=== PATIENT | female | born 1970 | race Caucasian/White ===

== ENCOUNTER → 2024-02-21 08:08 | Day surgery (SDC) | payer OTHER, SELFPAY | LOC: GI 08:08 | PROVIDERS: ATTENDING PHYSICIAN Surgery | DX: Z53.9 Procedure and treatment not carried out, unspecified reason (principal); Z12.11 Encounter for screening for malignant neoplasm of colon | CPT/HCPCS: G0121; G0378 ==

== ENCOUNTER 2024-03-04 12:21 | Inpatient (IN) | payer OTHER, SELFPAY ==
[2024-03-04] VITALS (34 sets, daily range): BP systolic 129–188; BP diastolic 79–160; PULSE 1–109; BMI 21.6; BMI 21.9
[2024-03-04 11:11] LABS: % Basophils 0.7 % (0-2); % Immature Granulocytes 0.3 % (0-0.5); % Lymphocytes 8.9 % (20.5-51.1); % Monocytes 3.4 % (1.7-9.3); % Neutrophils 86.7 % (42.2-75.2); Absolute Lymphocytes 0.3 10^3/uL (1.2-3.4); Absolute Monocytes 0.1 10^3/uL (0.1-0.6); Absolute Neutrophils 2.5 10^3/uL (1.4-6.5); Hematocrit 32.7 % (37.0-47.0); Hemoglobin 10.5 g/dL (12.0-16.0); Mean Corp Hgb Conc. 32.1 g/dL (33.0-37.0); Mean Corpuscular Hgb 30.8 pg (27.0-31.0); Mean Corpuscular Volume 95.9 fL (81.0-99.0); Mean Platelet Volume 9.2 fL (7.4-10.4); Nucleated Red Blood Cells % 0 %; Platelet Count 200 10^3/uL (130-400); Red Blood Cell Count 3.41 10^6/uL (4.20-5.40); Red Cell Dist. Width 17.4 % (11.5-14.5); White Blood Cell Count 2.9 10^3/uL (4.8-10.8)
--- NOTE | 2024-03-04 11:13 | ED.GENMED ---
History of Present Illness
<Lilian Quiros PA-C - Last Filed: 03/04/24 13:48>
General
Chief Complaint: Breathing Problem
Source: patient
Exam Limitations: none
Time Seen by Provider: 03/04/24 11:04
Travel History
Have you had any contact with someone who has COVID-19?: No
Do you have any symptoms of coronavirus? Fever > 100 degrees, chills, cough, shortness of breath, sore throat, loss of taste or smell, muscle aches, or headache?: Yes
Symptoms:: fever cough
History of Present Illness
History of Present Illness:
53-year-old female coming from home, history of end-stage renal disease on hemodialysis Monday did not get dialyzed today but last got dialyzed 3 days ago presents with dyspnea and a cough with hemoptysis this morning. Patient
apparently was feeling a little fatigued over the weekend over the past 2 days but abruptly got worse this morning with tachypnea and when she coughs she brought up a little bit of blood in her sputum. She was unaware she had a fever. She is
significantly hypoxic and tachypneic. She believes her weight is about her baseline. She has had chronic right leg edema compared to the left side
Past History
<Lilian Quiros PA-C - Last Filed: 03/04/24 13:48>
Past History
ED Past Medical History: Other (esrd on HD)
Social History
Tobacco: Smoker
Alcohol: None
Review of Systems
<ROBBY Johnson Last Filed: 03/04/24 13:48>
Review of Systems
Allergies reviewed?: Yes
All Other Systems: Not applicable
Phy Exam
<Lilian Quiros PA-C - Last Filed: 03/04/24 13:48>
Physical Exam
Physical Exam:
GENERAL: Alert , restless, air hunger, tachypneic, poor color
EYE: pupils equal and reactive
NECK: Supple
ENT: o/p clr DRY MOUTH
CARDIAC: regular, tachycardia
+ mod b/l edema R>L
LUNGS: crackles b/l, tachypneic, cough, some mild wheezing
ABDOMEN: Soft, without focal tenderness, no r/g, no cvat, normal bowel sounds
NEUROLOGICAL: Alert and oriented, no focal neuro deficits
SKIN: Warm and dry, skin intact. pale
MUSCULOSKELETAL: moderate edema, well perfused R>L. neg nahid's sign
PSYCH: Normal and appropriate interaction.
Scores
<Lilian Quiros PA-C - Last Filed: 03/04/24 13:48>
Heart Failure Risk
Heart Failure Risk Score: Not Applicable
Course
<Lilian Quiros PA-C - Last Filed: 03/04/24 13:48>
Orders/Labs/Results
Orders:
Orders
03/04/24 10:49
Electrocardiogram (*1) Urgent
Reason for Study: Other
Other Reason for Exam: Possible Sepsis
03/04/24 10:50
EKG- Treatment ONCE
03/04/24 10:52
COVID-19 Antigen Urgent
Source: Nasal Swab
Complete Blood Count/With Diff Urgent
Comprehensive Metabolic Panel Urgent
PTT Urgent
Comment: ADD ON
Prothrombin Time Urgent
Blood Culture Q30M
KIRIT Source: Blood/Venous
Specimen Description:
Comment: FROM 2 SEPARATE SITES
Influenza A+B Rapid Molecular Urgent
KIRIT Source: Nasal Swab
Specimen Description:
03/04/24 10:53
Lactic Acid Q4H
Comment: ON ICE, CANCEL 2ND ORDER IF FIRST LACTIC ACID LEVEL <2
03/04/24 10:59
BNP [NT-proBNP] Urgent
Blood Culture Q30M
KIRIT Source: Blood/Venous
Specimen Description:
Comment: FROM 2 SEPARATE SITES
03/04/24 11:09
Chest X-ray Portable [CR Chest Portable - 1 View] Stat
Comment:
Reason For Exam: hemotpysis, sob
Reason Study Needs to be Portable: Patient Unstable
03/04/24 11:16
Acetaminophen [Tylenol] 650 mg PO NOW STA
03/04/24 11:20
Piperacillin/Tazo 3.375 Gram [Zosyn] 3.375 gram in 50 ml IV NOW
Vancomycin 1 Gram/200 ml [Vancocin] 1 gram in 200 ml IV NOW
03/04/24 11:23
Cefepime HCl [Maxipime] 1,000 mg IV NOW STA
03/04/24 11:26
Bipap [RESP] Urgent
Patient to use own unit?: No
Inspiratory Pressure (cm H2O): 10
Expiratory Pressure (cm H2O): 5
03/04/24 11:31
Venous Doppler Lwr Ext Bilat [US Periph Venous LOWER Ext Colton] Urgent
Comment:
Reason For Exam: needs to be portable, pt unstable
03/04/24 11:59
Admit/Transfer Patient As Directed
Co-Sign Provider:
Level of Care: Inpatient admission
Assign to:: ICU
Physician / Group: hosp
Diagnosis: Hypoxic respiratory failure/community-acquired pneumonia
Reason for Hospitalization: Hypoxic respiratory failure
Expected length of stay greater than two midnights?: Yes
ELOS- Estimated Length of Stay in days: 4
I certify the patient meets the requirements for IP care: Yes
03/04/24 12:04
Code Status As Directed
Resuscitation Status: Full Code
03/04/24 12:18
Furosemide [Lasix] 40 mg IV NOW STA
03/04/24 12:27
ABG [Arterial Blood Gas] Urgent
%Oxygen/Room Air: 80
03/04/24 14:00
VANCOMYCIN Pharmacy to Dose [VANCOCIN Pharmacy to Dose] 1 each Pharmacy To Prepare [Call Pharmacy To Prepare] 0 ml IV PER PROTOCOL
03/05/24 18:00
Cefepime HCl [Maxipime] 1,000 mg IV QPM
Abnormal Lab Results
03/04/24
10:52
WBC 2.9 L 10^3/uL
(4.8-10.8)
RBC 3.41 L 10^6/uL
(4.20-5.40)
Hgb 10.5 L g/dL
(12.0-16.0)
Hct 32.7 L %
(37.0-47.0)
MCHC 32.1 L g/dL
(33.0-37.0)
RDW 17.4 H %
(11.5-14.5)
Absolute Lymphs (auto) 0.3 L 10^3/uL
(1.2-3.4)
Neutrophils % 86.7 H %
(42.2-75.2)
Lymphocytes % 8.9 L %
(20.5-51.1)
PT 16.8 H Sec
(11.4-14.6)
Sodium 132 L mmol/L
(135-145)
Chloride 96 L mmol/L
(98-107)
BUN 65 H mg/dl
(7-17)
Creatinine 6.9 H* mg/dL
(0.6-1.0)
Glucose 100 H mg/dl
(70-99)
Alkaline Phosphatase 213 H U/L
(38-126)
03/04/24 10:52
03/04/24 10:52
Vital Signs
Initial and Last Documented VS:
Initial Vital Signs
Temp Pulse Resp BP Pulse Ox
103 F H 115 35 176/112 88
03/04/24 10:46 03/04/24 10:46 03/04/24 10:46 03/04/24 10:46 03/04/24 10:46
Last Documented Vital Signs
Temp Pulse Resp BP Pulse Ox
102.7 F H 113 34 138/92 98
03/04/24 13:35 03/04/24 12:30 03/04/24 12:30 03/04/24 12:24 03/04/24 12:37
<Homer White, DO - Last Filed: 03/04/24 13:17>
Orders/Labs/Results
Orders:
Orders
03/04/24 10:49
Electrocardiogram (*1) Urgent
Reason for Study: Other
Other Reason for Exam: Possible Sepsis
03/04/24 10:50
EKG- Treatment ONCE
03/04/24 10:52
COVID-19 Antigen Urgent
Source: Nasal Swab
Complete Blood Count/With Diff Urgent
Comprehensive Metabolic Panel Urgent
PTT Urgent
Comment: ADD ON
Prothrombin Time Urgent
Blood Culture Q30M
KIRIT Source: Blood/Venous
Specimen Description:
Comment: FROM 2 SEPARATE SITES
Influenza A+B Rapid Molecular Urgent
KIRIT Source: Nasal Swab
Specimen Description:
03/04/24 10:53
Lactic Acid Q4H
Comment: ON ICE, CANCEL 2ND ORDER IF FIRST LACTIC ACID LEVEL <2
03/04/24 10:59
BNP [NT-proBNP] Urgent
Blood Culture Q30M
KRIIT Source: Blood/Venous
Specimen Description:
Comment: FROM 2 SEPARATE SITES
03/04/24 11:09
Chest X-ray Portable [CR Chest Portable - 1 View] Stat
Comment:
Reason For Exam: hemotpysis, sob
Reason Study Needs to be Portable: Patient Unstable
03/04/24 11:16
Acetaminophen [Tylenol] 650 mg PO NOW STA
03/04/24 11:20
Piperacillin/Tazo 3.375 Gram [Zosyn] 3.375 gram in 50 ml IV NOW
Vancomycin 1 Gram/200 ml [Vancocin] 1 gram in 200 ml IV NOW
03/04/24 11:23
Cefepime HCl [Maxipime] 1,000 mg IV NOW STA
03/04/24 11:26
Bipap [RESP] Urgent
Patient to use own unit?: No
Inspiratory Pressure (cm H2O): 10
Expiratory Pressure (cm H2O): 5
03/04/24 11:31
Venous Doppler Lwr Ext Bilat [US Periph Venous LOWER Ext Colton] Urgent
Comment:
Reason For Exam: needs to be portable, pt unstable
03/04/24 11:59
Admit/Transfer Patient As Directed
Co-Sign Provider:
Level of Care: Inpatient admission
Assign to:: ICU
Physician / Group: hosp
Diagnosis: Hypoxic respiratory failure/community-acquired pneumonia
Reason for Hospitalization: Hypoxic respiratory failure
Expected length of stay greater than two midnights?: Yes
ELOS- Estimated Length of Stay in days: 4
I certify the patient meets the requirements for IP care: Yes
03/04/24 12:04
Code Status As Directed
Resuscitation Status: Full Code
03/04/24 12:18
Furosemide [Lasix] 40 mg IV NOW STA
03/04/24 12:27
ABG [Arterial Blood Gas] Urgent
%Oxygen/Room Air: 80
03/04/24 14:00
VANCOMYCIN Pharmacy to Dose [VANCOCIN Pharmacy to Dose] 1 each Pharmacy To Prepare [Call Pharmacy To Prepare] 0 ml IV PER PROTOCOL
03/05/24 18:00
Cefepime HCl [Maxipime] 1,000 mg IV QPM
Abnormal Lab Results
03/04/24
10:52
WBC 2.9 L 10^3/uL
(4.8-10.8)
RBC 3.41 L 10^6/uL
(4.20-5.40)
Hgb 10.5 L g/dL
(12.0-16.0)
Hct 32.7 L %
(37.0-47.0)
MCHC 32.1 L g/dL
(33.0-37.0)
RDW 17.4 H %
(11.5-14.5)
Absolute Lymphs (auto) 0.3 L 10^3/uL
(1.2-3.4)
Neutrophils % 86.7 H %
(42.2-75.2)
Lymphocytes % 8.9 L %
(20.5-51.1)
PT 16.8 H Sec
(11.4-14.6)
Sodium 132 L mmol/L
(135-145)
Chloride 96 L mmol/L
(98-107)
BUN 65 H mg/dl
(7-17)
Creatinine 6.9 H* mg/dL
(0.6-1.0)
Glucose 100 H mg/dl
(70-99)
Alkaline Phosphatase 213 H U/L
(38-126)
03/04/24 10:52
03/04/24 10:52
Vital Signs
Initial and Last Documented VS:
Initial Vital Signs
Temp Pulse Resp BP Pulse Ox
103 F H 115 35 176/112 88
03/04/24 10:46 03/04/24 10:46 03/04/24 10:46 03/04/24 10:46 03/04/24 10:46
Last Documented Vital Signs
Temp Pulse Resp BP Pulse Ox
102.7 F H 113 34 138/92 98
03/04/24 13:35 03/04/24 12:30 03/04/24 12:30 03/04/24 12:24 03/04/24 12:37
<Lilian Quiros PA-C - Last Filed: 03/04/24 13:48>
MDM/Problems Addressed
Differential Diagnosis Includes:
sepsis, pneumonia,, covid, copd, ptx, PE, CHF
MDM/Problems Addressed:
53 y/o ESRD on HD M/W/F last dialyzed monday; fatigue yesterday, today SOB, fever to 103 and small amount of hemoptysis; hypoxic on 6L so now on BIPAP 08/24, cxr looks like moderate sized RLL pna and some intersitial edema; patient's symptoms
improved on BiPAP
And was diagnosed with hospitalist
03/04/2024 1215, called to the room by RN, patient acutely restless and tolerating provide our before she became irritable, restless with air hunger, wheezy. We remove the BiPAP and put her on high flow, ordered ABG, IV Lasix, DuoNebs, steroids and
will consider intubation as needed
Hospitalist made aware
<Homer White DO - Last Filed: 03/04/24 13:17>
*Critical Care Note
Total Time (30-74mins, 75-104mins- exclusive of procedures): 45min
comment:
The patient presents with shortness of breath. I evaluated the patient at bedside. The symptoms are likely multifactorial. The patient was on BiPAP but started did not tolerate it. She seemed to have increasing dyspnea therefore ABG was obtained
and considered intubation. ABG however is relatively reassuring.
ED Attending Note
<Lilian Quiros PA-C - Last Filed: 03/04/24 13:48>
-
Portions of this chart may have been created with voice recognition software.� Occasional wrong word or��sound alike� substitutions may have occurred due to the inherent limitations of voice recognition software.
<Homer White, DO - Last Filed: 03/04/24 13:17>
ED Attending Note
Patient seen and examined by attending physician: Yes
I performed the substantive portion of visit, reviewed & personally made and approve the management plan that is documented in note by myself or ALLI.: Yes
I performed a history and physical exam of patient and discussed management with resident, I reviewed resident's note and agree with documented findings and plan of care.: Yes
ED Attending Note:
See critical care note
Discharge Plan
Departure
Patient Disposition: Admit
Date of Disposition: 03/04/24
Time of Disposition: 11:29
Admit to: IMU
Presentation/result/management discussed w/ accepting MD/DO: Hospitalist
Condition: Fair
Covid-19: Negative COVID-19
Discharge Problem:
Pneumonia, Sepsis, Hypoxia, CHF (congestive heart failure)
Interventions
Interventions:
*Risk Screen - Suicide Last Done: 03/04/24 10:46
*General Assessment Last Done: 03/04/24 10:46
*Neglect/Abuse Screening Last Done: 03/04/24 10:46
ED- Fall Risk Assessment Last Done: 03/04/24 11:23
*ED COVID-19 Vaccine History Last Done: 03/04/24 10:46
ED- Cardiac Assessment Last Done: 03/04/24 11:23
ED- Pulmonary Assessment Last Done: 03/04/24 11:23
[2024-03-04 11:21] LABS: INR 1.39; PT 16.8 Sec (11.4-14.6)
[2024-03-04] MEDS: TYLENOL 650 MG PO ×3 (11:21→20:34)
[2024-03-04 11:22] LABS: COVID-19 Antigen Negative (Negative)
[2024-03-04 11:31] LABS: Lactic Acid 1.3 mmol/L (0.7-2.0)
[2024-03-04] MEDS: MAXIPIME 1000 MG IV ×2 (11:31→20:35)
[2024-03-04] MEDS: VANCOCIN 200 IV (11:34)
[2024-03-04 11:35] LABS: ALT (SGPT) 16 U/L (0-35); AST (SGOT) 26 U/L (14-36); Alkaline Phosphatase 213 U/L (38-126); Blood Urea Nitrogen 65 mg/dl (7-17); Calcium 9.4 mg/dl (8.4-10.2); Carbon Dioxide 24 mmol/L (22-30); Chloride 96 mmol/L (98-107); Estimated Creatinine Clearance 8 ml/min; Glucose 100 mg/dl (70-99); Potassium 4.5 mmol/L (3.5-5.1); Sodium 132 mmol/L (135-145); Total Bilirubin 1.2 mg/dl (0.2-1.3); Total Protein 7.5 g/dl (6.3-8.2); eGFR 6.55
[2024-03-04 11:46] LABS: NT-proBNP > 27000 pg/ml
--- NOTE | 2024-03-04 12:21 | HPS.HSE ---
Family Physician
-
Family Physician: Meena Larkin
Chief Complaint
-
Increasing fatigue shortness of breath and blood in sputum in the last 24 hours
History of Present Illness
53-year-old female on long-term dialysis since August with an AV fistula in her left brachialis who over the weekend developed increasing fatigue and lethargy but especially noted this morning and also had nausea and vomiting increasing shortness
of breath and she was too ill today to leave her scheduled dialysis that she gets Monday she has been diagnosed with end-stage renal disease since August of this past year but had described increasing fatigue over the weekend has
not felt right ever since she started dialysis. She also related a little bit of blood in her sputum this morning. She is not aware of a febrile course but presented with a fever of 103 here. She remains significantly hypoxic and is presently on
a BiPAP mask with continued tachypnea. BP remains relatively stable at 150s over 90 and heart rate is 10 5-1 10 she does relate chronic lower extremity edema with the right leg being out of proportion to the left as far as edema is concerned. She
received an empiric course of vancomycin and cefepime here in the emergency room/rest of his history is rather sketchy even from patient's mother at bedside who did supply a full list of her medications and the patient apparently has schizophrenia
is on Seroquel also restless legs and is treated for hypertensive urgency in the past.
Her most recent echocardiogram was in 2021 at that time an EF of 55 to 60% was noted with a normal RV and function trace mitral regurg and tricuspid regurg was noted no significant change in 2018.
-She is able to states she was born with 1 kidney but could not relate how she entered into end-stage renal disease in the necessity for hemodialysis. She is not diabetic. She does not relate a history of breast cancer. And she does have have
hyperlipidemia with prior surgeries including lumbar surgery
Medical History
Past Medical History
Past Medical History: Reports Cancer (Breast cancer), HTN, Hypercholesterolemia and Renal Failure
Past Surgical History: Reports Gynocological and Orthopedic
Additional Past Surgical History:
Prior lumbar surgery/AV fistula left arm
Social History
Tobacco: Non-smoker
Drug: None
Personal: Single
Living: Alone
Family History
Family History: Not pertinent
Allergies / Home Medications
Allergies reflects when Allergies were last updated in [facility].
Home Medications with original date entered in [facility]
Allergy/Medication List:
Allergies
Allergy/AdvReac Type Severity Reaction Status Date / Time
No Known Allergies Allergy Unverified 03/04/24 10:48
Home Medications
amlodipine 10 mg tablet (Norvasc) 10 mg PO HS Blood Pressure 12/22/08
carvedilol 25 mg tablet (Coreg) 25 mg PO BID Blood Pressure 03/04/24
cinacalcet 30 mg tablet 60 mg PO QPM Kidney Disease 03/04/24
furosemide 80 mg tablet (Lasix) 80 mg PO DAILY Fluid Retention/Swelling 03/04/24
gabapentin 100 mg capsule 100 mg PO TID pain 03/04/24
hydralazine 25 mg tablet 50 mg PO TID Blood Pressure 03/04/24
pramipexole 0.125 mg tablet 0.125 mg PO TID Neurological Condition 03/04/24
quetiapine 400 mg tablet (Seroquel) 400 mg PO HS Mental Health/Anxiety 03/04/24
ropinirole 0.5 mg tablet 0.5 mg PO BID Neurological Condition 03/04/24
rosuvastatin 10 mg tablet (Crestor) 10 mg PO DAILY High Cholesterol 03/04/24
sertraline 100 mg tablet 100 mg PO HS depression 03/04/24
sevelamer carbonate 800 mg tablet (Renvela) 800 mg PO AC Kidney Disease 03/04/24
sodium zirconium cyclosilicate 10 gram oral powder packet (Lokelma) 10 g PO MOWEFR high potassium levels 03/04/24
Review of Systems
-
History Source: Patient, Family and Ambulance Crew
Constitutional: Reports Fatigue and Sleep Disturbance
Respiratory: Reports Cough and Hemoptysis
Cardiac: Reports No Symptoms
: Reports No Symptoms
Physical Exam
Vital Signs
Vital Signs
Temp Pulse Resp BP Pulse Ox
103 F H 110 37 176/112 93
03/04/24 10:46 03/04/24 11:45 03/04/24 11:45 03/04/24 10:46 03/04/24 11:45
Physical Exam
HEENT: NormoCephalic
Respiratory: Accessory Resp Muscle Use and Decreased Breath Sounds
Cardiac: S1/S2 and Regular Rhythm
GI: Soft and Non Tender
Skin: Warm
Neuro: Awake, Alert and Oriented
Psych: Anxious
Laboratory Results
-
03/04/24 10:52
03/04/24 10:52
Laboratory Results
PT 16.8 Sec (11.4-14.6) H 03/04/24 10:52
INR 1.39 03/04/24 10:52
Lactic Acid Cancelled 03/04/24 15:00
Total Bilirubin 1.2 mg/dl (0.2-1.3) 03/04/24 10:52
AST 26 U/L (14-36) 03/04/24 10:52
ALT 16 U/L (0-35) 03/04/24 10:52
Alkaline Phosphatase 213 U/L (38-126) H 03/04/24 10:52
Data Reviewed
-
Critical Care Time (in minutes): 67
Diagnostic Radiology: Report Reviewed by me and Discussed with Physician
Medical Tests (Nuc Med, Echo, EKG etc): Report Reviewed by me
Lab Data: Labs Reviewed by me
Impression/Plan
-
IMPRESSION:
53-year-old female on long-term dialysis since August with an AV fistula in her left brachialis who over the weekend developed increasing fatigue and lethargy but especially noted this morning and also had nausea and vomiting increasing shortness
of breath and she was too ill today to leave her scheduled dialysis that she gets Monday she has been diagnosed with end-stage renal disease since August of this past year but had described increasing fatigue over the weekend has
not felt right ever since she started dialysis. She also related a little bit of blood in her sputum this morning. She is not aware of a febrile course but presented with a fever of 103 here. She remains significantly hypoxic and is presently on
a BiPAP mask with continued tachypnea. BP remains relatively stable at 150s over 90 and heart rate is 10 5-1 10 she does relate chronic lower extremity edema with the right leg being out of proportion to the left as far as edema is concerned. She
received an empiric course of vancomycin and cefepime here in the emergency room/rest of his history is rather sketchy even from patient's mother at bedside who did supply a full list of her medications and the patient apparently has schizophrenia
is on Seroquel also restless legs and is treated for hypertensive urgency in the past.
Her most recent echocardiogram was in 2021 at that time an EF of 55 to 60% was noted with a normal RV and function trace mitral regurg and tricuspid regurg was noted no significant change in 2018.
-She is able to states she was born with 1 kidney but could not relate how she entered into end-stage renal disease in the necessity for hemodialysis. She is not diabetic. She does not relate a history of breast cancer. And she does have have
hyperlipidemia with prior surgeries including lumbar surgery
Sepsis present on admission with hypoxic respiratory failure
-Presumed source is pneumonic infiltrate seen on chest x-ray
-Treat as community-acquired pneumonia
-COVID and influenza negative
-Significant hypoxic on presentation may need to be intubated/admit to ICU/obtain urgent ABG
-Got empiric dosage of cefepime and vancomycin to continue
-Continue on Decadron IV and nebulization
-proBNP and troponins pending
-May have an element of fluid overload heart failure
-Reviewed most recent 2D echocardiogram from 2021 which was within normal limits
-Pulmonary motor racer consultation
End-stage renal disease
-Some element of fluid overload
-Bilateral venous Dopplers of both lower extremities negative for DVT
-Continue Cinacalcet/Lokelma/Renvela
-Consult nephrology has missed today's dialysis and appears to need
Essential hypertension
-Continue carvedilol twice daily
-Amlodipine?(Contributing to chronic leg edema)?
-Hydralazine 50 3 times daily
Schizophrenia
-Continue quetiapine
-Sertraline 100 nightly
Restless leg syndrome
-Underlying neuropathy
-Continue gabapentin
-Continue pramipexole
DVT prophylaxis with heparin/avoid compression devices with peripheral edema
-Full CODE STATUS
[2024-03-04] MEDS: DUONEB 6 ML INH (12:24)
[2024-03-04] MEDS: LASIX 40 MG IV (12:24)
[2024-03-04] MEDS: SOLU-MEDROL PF 125 MG IV (12:26)
[2024-03-04 12:36] LABS: B.E. 0.6 mmol/L; HCO3 24.2 mmol/L (21-28); PCO2 34 mmHg (32-35); PO2 74 mmHg (83-108); pH 7.46 (7.35-7.45)
--- NOTE | 2024-03-04 12:50 | W.CON.NEPH ---
Consultation
-
Date/Time Consultation Requested: 03/04/2024 12:00pm
Date/Time Consultation Performed: 03/04/2024 12:45 PM
Requesting Provider: Kaleb
Performing Provider: Vero
Reason for Consultation: ESRD
Medical History
-
Chief Complaint: End-stage renal disease
History of Present Illness:
Patient is a 53-year-old female with a history of solitary kidney who has been maintained on dialysis at [facility] dialysis unit since August 2023 on a Monday schedule. She has a history of secondary hyperparathyroidism and
is maintained on Cinacalcet. She is a longstanding history of hypertension for which she is maintained on amlodipine carvedilol Lasix and hydralazine. She is maintained on sevelamer in the setting of her hyperphosphatemia. She presented to the
hospital after having abrupt shortness of breath earlier this morning with associated cough and hemoptysis and fever. Chest x-ray findings appear to be consistent with a right lower lobe pneumonia. She has not had dialysis since Monday, however,
she does not usually become short of breath in between her dialysis treatments. She is critically ill on high flow oxygen and nephrology was consulted to see the patient for her end-stage renal disease management in the setting of her hypoxia.
Past Medical History
ESRD since August 2023
Solitary kidney
Hypertension
Secondary hyperparathyroidism
Anxiety
Hyperphosphatemia
Depression
Social History
Tobacco: Smoker
Alcohol: None
Personal: Other (Lives with parents)
Living: With Family
Family History
No CKD
Allergies / Home Medications
Allergy/AdvReac Type Severity Reaction Status Date / Time
No Known Allergies Allergy Unverified 03/04/24 10:48
�Medication �Instructions �Recorded �Confirmed �Type
amlodipine 10 mg tablet (Norvasc) 10 mg PO HS Blood Pressure 12/22/08 03/04/24 History
carvedilol 25 mg tablet (Coreg) 25 mg PO BID Blood Pressure 03/04/24 03/04/24 History
cinacalcet 30 mg tablet 60 mg PO QPM Kidney Disease 03/04/24 03/04/24 History
furosemide 80 mg tablet (Lasix) 80 mg PO DAILY Fluid 03/04/24 03/04/24 History
Retention/Swelling
gabapentin 100 mg capsule 100 mg PO TID pain 03/04/24 03/04/24 History
hydralazine 25 mg tablet 50 mg PO TID Blood Pressure 03/04/24 03/04/24 History
pramipexole 0.125 mg tablet 0.125 mg PO TID Neurological 03/04/24 03/04/24 History
Condition
quetiapine 400 mg tablet (Seroquel) 400 mg PO HS Mental Health/Anxiety 03/04/24 03/04/24 History
ropinirole 0.5 mg tablet 0.5 mg PO BID Neurological 03/04/24 03/04/24 History
Condition
rosuvastatin 10 mg tablet (Crestor) 10 mg PO DAILY High Cholesterol 03/04/24 03/04/24 History
sertraline 100 mg tablet 100 mg PO HS depression 03/04/24 03/04/24 History
sevelamer carbonate 800 mg tablet 800 mg PO AC Kidney Disease 03/04/24 03/04/24 History
(Renvela)
sodium zirconium cyclosilicate 10 10 g PO MOWEFR high potassium 03/04/24 03/04/24 History
gram oral powder packet (Lokelma) levels
Review of Systems
-
History Source: Patient
All other systems: Negative unless noted
Constitutional: Fever and Fatigue
EENT: Runny Nose
Respiratory: Cough, Hemoptysis and Trouble Breathing
Cardiac: No Symptoms and Other (Noted chronic edema)
Abdomen/GI: No Symptoms
: No Symptoms and Other (Continues to make some urine)
Musculoskeletal: No Symptoms
Skin: No Symptoms
Neurological: Other (Noted involuntary chronic extremity movements)
Endocrine: No Symptoms
Hematologic/Lymphatic: No Symptoms and Other (Left upper extremity AV fistula with aneurysmal dilatation)
Physical Exam
Vital Signs
Vital Signs
Temp Pulse Resp BP Pulse Ox
103 F H 113 34 138/92 98
03/04/24 10:46 03/04/24 12:30 03/04/24 12:30 03/04/24 12:24 03/04/24 12:37
Lab Results
03/04/24 10:52
03/04/24 10:52
WBC 2.9 10^3/uL (4.8-10.8) L 03/04/24 10:52
RBC 3.41 10^6/uL (4.20-5.40) L 03/04/24 10:52
Hgb 10.5 g/dL (12.0-16.0) L 03/04/24 10:52
Hct 32.7 % (37.0-47.0) L 03/04/24 10:52
Plt Count 200 10^3/uL (130-400) 03/04/24 10:52
Sodium 132 mmol/L (135-145) L 03/04/24 10:52
Potassium 4.5 mmol/L (3.5-5.1) 03/04/24 10:52
Chloride 96 mmol/L (98-107) L 03/04/24 10:52
Carbon Dioxide 24 mmol/L (22-30) 03/04/24 10:52
BUN 65 mg/dl (7-17) H 03/04/24 10:52
Creatinine 6.9 mg/dL (0.6-1.0) H* 03/04/24 10:52
eGFR 6.55 03/04/24 10:52
Glucose 100 mg/dl (70-99) H 03/04/24 10:52
Calcium 9.4 mg/dl (8.4-10.2) 03/04/24 10:52
Uul-O-Vlqzmujovps Pept > 03342 pg/ml 03/04/24 10:59
Albumin 4.0 g/dl (3.5-5.0) 03/04/24 10:52
Physical Exam
General: AOx3 and Other (Noted moderate respiratory distress)
HEENT: PERRL, EOMI, Anicteric, Conjunctivae Clear, Ear/Nose Intact, Hearing Normal, Oropharynx Clear/Moist, Dentition Intact, Facial Symmetry, Neck Supple, Trachea Midline, No JVD and No Thyromegaly
Respiratory: Wheezes, Crackels, Rhonchi and Normal Excursion
Cardiac: S1/S2 and Regular Rate/Rhythm (Tachycardic)
Breast: Deferred by me
Abdomen: Soft, Nontender, Nondistended, Normal Bowel Sounds and No Hepatosplenomegaly
Rectal: Deferred by Provider
Genito-urinary: No Costovertebral Tender
Musculoskeletal: No Clubbing, No Cyanosis and Edema (+1 pitting pretibial edema)
Skin: No Rash
Neuro: Nonfocal/Grossly Intact, CN II-XII and Strength (5 out of 5 in upper and lower extremity, involuntary extremity movements in all 4 extremities)
Hematologic/Lymphatic: No Cervical Lymphadenopathy, No Submandibular Lymphadenopathy, No Supraclavicular Lymphadenopathy and Other (Left upper extremity AV fistula with aneurysmal dilatation noted with good thrill and bruit)
Psych: Insight/judgement good and Appropriate
Assessment/Plan
-
Impression:
RLL PNA (Fevers, Hemoptosis)/Hypoxia
End-stage renal disease Monday at [facility]
Hypertension
Secondary hyperparathyroidism
Solitary kidney
Hyperphosphatemia
Anxiety depression
Dyslipidemia
History of extremity involuntary movements
Delusional hyponatremia
Chronic Hyperkalemia
Left upper extremity AV fistula
Plan:
Patient appears critically ill with respiratory distress and hypoxia in the setting of pneumonia
We will provide urgent dialysis in case hypoxia is also volume related, orders provide
Cefepime to be dosed after dialysis per discussion with pharmacy
Maintain current oral antihypertensives in setting of
Maintain Cinacalcet for secondary hyperparathyroid
Maintain sevelamer with meals Re: Hyperphosphatemia
Maintain Lokelma for hyperkalemia
Fluid restriction of 1500 cc daily for ESRD and hyponatremia
Total Time Spent with Patient (in minutes): 45 minutes of critical care time spent with patient
Data Reviewed
-
Radiology: Image Personally Visualized and interpreted (Chest x-ray personally reviewed mild interstitial edema but noted right middle lobe lower pneumonia)
Ultrasound: Report Reviewed by me (Peripheral ultrasound without DVT)
Medical Tests (Nuc Med, Echo etc): Other (EKG report reviewed sinus tachycardic rhythm 110 bpm)
Labs: Labs Reviewed by me (CBC and BMP reviewed)
Critical Care Time (in minutes): 45
--- NOTE | 2024-03-04 14:17 | PHA.VAN.IN ---
Assessment
- Assessment
Renal Function: Patient has ESRD, on chronic Hemodialysis
Hemodialysis Schedule: MWF
Maximum Temperature: 103 F at 10:46 (oral)
Concomitant Antimicrobials: cefepime
Plan
- Plan
Initial / Loading Dose: 1000mg - 03/04 11:34 PLUS additional 500mg at end of HD
Maintenance Regimen: dosing by level / HD
Monitoring: random level prior to next HD session
MRSA Screen: Ordered per protocol
Pharmacokinetics Vancomycin I
- -
Patient Age: 53
Patient Sex: Female
Vancomycin Day #: 1
Indication: Pulmonary/Respiratory
Requesting Provider: Dr. Maxwell
Pertinent Antimicrobial Allergies:
NKDA
Height / Weight:
Height 5 ft 5 in
Actual Weight 58.9 kg
Pertinent Past Medical History: ESRD on HD MWF
- Vital Signs / Lab Results
Temp Pulse Resp BP Pulse Ox
102.7 F H 103 22 139/88 95
03/04/24 13:35 03/04/24 14:00 03/04/24 14:00 03/04/24 14:00 03/04/24 14:00
Lab Results - Hematology
03/04/24
10:52
WBC 2.9 L
Lab Results - Chemistry
03/04/24
10:52
BUN 65 H
Creatinine 6.9 H*
Estimated Creat Clear 8
Albumin 4.0
03/04/24 03/04/24
10:53 15:00
Lactic Acid 1.3 Cancelled
Microbiology Results
03/04/24 10:52 Influenza Types A & B (CAT) - Final
Nasal Swab Negative for Influenza A & B, NAAT
Negative results must be combined with clinical observations
and patient history.
Nucleic Acid Amplification test (NAAT)performed on the
[employer] platform.
--- NOTE | 2024-03-04 15:25 | CON.INTV ---
Consultation
Consultation Request
Date/Time Consultation Requested: 03-04-24
Date/Time Consultation Performed: 03-04-24
Requesting Provider: Hospitalist adelina
Performing Provider: Dr Gates
Reason for Consultation: dyspnea
Medical History
-
Chief Complaint: dyspnea
History of Present Illness:
Ms Maryanne Barroso is a 53/W adm 03-04 with 2 d h/o worsening fatigue, lethargy, n/v and dyspnea.
Could not go for regular HD on DOA as felt too ill. Reported mild hemoptysis on morning of adm. No previous h/o hemoptysis
At ER, febrile at 103F, hypoxic, BP 150/90, mild tachycardia, reportedly no change in mild R>L SHOBHA edema.
Started on BPAP, vancomycin/cefepime, CXR with basilar infiltrate. Could not tolerate BPAP, started on HFNC
Reports remote h/o of pneumonia treated as outpatient
CKD, on HD MWF since Aug 2023, LUE AVF, last session F 03-01, 4 hrs HD
Smoker since early 20s, smokes up to 3 cig per day for a long time, at most smoked up to 1/2 ppd in remote past
Past Medical History
Past Medical History: Cancer (breast), HTN, Hypercholesterolemia, Renal Failure (on HD) and Psychiatric (schizophrenia)
Social History
Tobacco: Smoker
Alcohol: None
Drug: None
Personal: Single
Living: Alone and With Family
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
Family History
Family History: Reviewed & Not Pertinent
Allergies / Home Medications
Allergies
Allergy/AdvReac Type Severity Reaction Status Date / Time
No Known Allergies Allergy Unverified 03/04/24 10:48
Home Medications
�Medication �Instructions �Recorded �Confirmed �Last Taken �Type
amlodipine 10 mg tablet (Norvasc) 10 mg PO HS Blood Pressure 12/22/08 03/04/24 03/03/24 History
carvedilol 25 mg tablet (Coreg) 25 mg PO BID Blood Pressure 03/04/24 03/04/24 03/03/24 History
cinacalcet 30 mg tablet 60 mg PO QPM Kidney Disease 03/04/24 03/04/24 03/03/24 History
furosemide 80 mg tablet (Lasix) 80 mg PO DAILY Fluid 03/04/24 03/04/24 03/03/24 History
Retention/Swelling
gabapentin 100 mg capsule 100 mg PO TID pain 03/04/24 03/04/24 03/03/24 History
hydralazine 25 mg tablet 50 mg PO TID Blood Pressure 03/04/24 03/04/24 03/03/24 History
pramipexole 0.125 mg tablet 0.125 mg PO TID Neurological 03/04/24 03/04/24 03/03/24 History
Condition
quetiapine 400 mg tablet (Seroquel) 400 mg PO HS Mental Health/Anxiety 03/04/24 03/04/24 03/03/24 History
ropinirole 0.5 mg tablet 0.5 mg PO BID Neurological 03/04/24 03/04/24 03/03/24 History
Condition
rosuvastatin 10 mg tablet (Crestor) 10 mg PO DAILY High Cholesterol 03/04/24 03/04/24 03/03/24 History
sertraline 100 mg tablet 100 mg PO HS depression 03/04/24 03/04/24 03/03/24 History
sevelamer carbonate 800 mg tablet 800 mg PO AC Kidney Disease 03/04/24 03/04/24 03/03/24 History
(Renvela)
sodium zirconium cyclosilicate 10 10 g PO MOWEFR high potassium 03/04/24 03/04/24 03/01/24 History
gram oral powder packet (Lokelma) levels
Review of Systems
-
History Source: Patient
All other systems: Negative unless noted
Constitutional: Fatigue
Respiratory: Hemoptysis and Trouble Breathing
Vitals / Labs / Diagnostic Testing
Vital Signs
Temp Pulse Resp BP Pulse Ox
102.4 F H 103 29 139/88 92
03/04/24 15:11 03/04/24 14:15 03/04/24 14:15 03/04/24 14:00 03/04/24 14:56
Lab Data
03/04/24 10:52
03/04/24 10:52
Laboratory Results
03/04/24 03/04/24
10:52 12:27
PT 16.8 H
INR 1.39
APTT 33.0
pH 7.46 H
pCO2 34
pO2 74 L
HCO3 24.2
O2 Delivery Level
Microbiology
03/04/24 10:52 Nasal Swab Influenza Types A & B (CAT) - Final
Negative for Influenza A & B, NAAT
Negative results must be combined with clinical observations
and patient history.
Nucleic Acid Amplification test (NAAT)performed on the
[employer] platform.
Diagnostic Testing:
Physical Exam
-
HEENT: Normocephalic, Moist Mucous Membranes and Thrush (n)
Cardiovascular: Regular Rhythm, Murmur (n), Peripheral Edema (mild R>L leg edema), Calf Tenderness (n) and JVD (mild)
Respiratory: Rales (R base), Rhonchi and Non-Labored Respirations
GI: Soft, Non Distended and Non Tender
Neurology: Awake, AO x 3 and No Motor Deficits
Skin: Warm
General: Respiratory Distress (mild)
Assessment
-
Assessment:
Ms Maryanne Barroso is a 53/W adm 03-04 with 2 d h/o worsening fatigue, lethargy, n/v and dyspnea. Could not go for regular HD on DOA. Reported mild hemoptysis on morning of adm. At ER, febrile at 103F, hypoxic, BP 150/90, mild tachycardia, reportedly no
change in R>L SHOBHA edema. Started on BPAP, vancomycin/cefepime, CXR with basilar infiltrate
Impression:
R basilar infiltrate
Fever
Hemoptysis, pinkish frothy sputum
Pulmonary vascular congestion
Leukopenia
Elevated BNP
COVID/flu negative
Conditions SOUND TECHNICIAN:
CKD, on HD MWF since Aug 2023, LUE AVF
Secondary hyperparathyroidism
Solitary kidney
Mild MR, small PFO on TTE Jul 2023
Anxiety
Depression
Schizophrenia
L spine surgery
RLS
Smoker
Plan:
Admitted to ICU for resp distress, fever and hemoptysis
R basilar infiltrate
Mild hemoptysis of pinkish frothy sputum, witnessed: compounded by HF state (pulm vasc congestion on CXR, last HD 03-01) and platelet dysfunction secondary to CKD
Continue O2 protocol
Currently on HFNC, wean down as tolerated
Sputum cx sample collected
Blood cxs pending
MRSA screening pending
Empiric atbs to continue: cefepime/vancomycin
Reported wheezing SOUND TECHNICIAN, started on IV MP at ER, likely component of acute bronchitis plus HF state
Continue IV MP for now
Follow cxs and adjust atbs accordingly
Follow trops
SHOBHA doppler negative
For HD 03-04
Renal following
Continue a-HTN regimen
Can continue sc hep
Critical care time: 35 min
[2024-03-04 15:44] LABS: Troponin I 0.099 ng/ml
[2024-03-04] MEDS: MIRAPEX 0.125 MG PO ×2 (15:52→20:49)
[2024-03-04] MEDS: APRESOLINE PO (15:52)
[2024-03-04] MEDS: NEURONTIN 100 MG PO ×2 (15:52→20:49)
[2024-03-04] MEDS: RENVELA PO (16:02)
--- NOTE | 2024-03-04 16:12 | PTCARENOTE ---
patient received from ED, in high fowlers position. unable to tolerate head of bed reclined. lungs with coarse breath sounds bilaterally, rhonchi and rales. on high flow oxygen. sinus tachycardia. anxious initially with frequent involuntary
movements arms and legs and head. moist cough, frequent hemoptysis. abdomen round. no urine output, bladder scan as noted. left upper arm with av fistula. +bruit and thrill. call roca in reach. oriented to unit. mother at bedside. awaiting HD
--- NOTE | 2024-03-04 16:42 | PTCARENOTE ---
placed on HD by HD RN. filter press operator and hospitalist updated by facundoer text regarding troponin result
--- NOTE | 2024-03-04 17:28 | W.PN.NEPH.HD ---
Assessment
-
patient seen on HD
sbp stable at current u/f
on high flow o2
Progress Note - Hemodialysis
-
Date of Service: March 04, 2024
Duration: 30 minutes and 3 hours
Potassium Bath: 2
Calcium Bath: 2.5
Opti-Dialyzer: 160
Ultrafiltration: Other (2.5kg)
Blood Flow: 400
Dialysate Flow: 600
Heparin: none
EPO: none
[2024-03-04] MEDS: SENSIPAR PO (17:54)
[2024-03-04] MEDS: REQUIP 0.5 MG PO (18:32)
--- NOTE | 2024-03-04 18:34 | PTCARENOTE ---
remains on HD, increase restless legs, medicated with 2000 dose requip
--- NOTE | 2024-03-04 20:00 | PTCARENOTE ---
Received patient on HD, AAOx3, anxious. Frequent involuntary movements of arms, legs, and head. Patient reports right flank pain, aching, meets acceptable pain level at this time. Patient requested information about a living will, folder given.
Sinus tach, 100s. Hypertensive, 160s-180s/80s-90s, scheduled medications to be given after dialysis. +2 pitting edema on bilateral lower extremities. Rectal probe in place, febrile to 100.7. On 50 liters/50% HFNC, saturating 97%. Lung sounds coarse
and rhonci throughout. Productive, frequent cough with occasional hemoptysis. Abdomen soft, round, hypoactive bowel sounds. Ate 90% of clear liquid diet. Purewick in place. Rash on back prior to admission. LUE AV fistula, + bruit and thrill. PIVs
WNL, patent. Call roca within reach, patient able to make needs known.
[2024-03-04] MEDS: HEPARIN 5000 UNITS SC (20:34)
[2024-03-04] MEDS: STERILE WATER FOR INJECTION 10 ML IV (20:35)
[2024-03-04] MEDS: SOLU-MEDROL PF 60 MG IV (20:35)
[2024-03-04] MEDS: VANCOCIN HCL 500 MG 100 IV (20:36)
[2024-03-04] MEDS: ZOLOFT 100 MG PO (20:49)
[2024-03-04] MEDS: NORVASC 10 MG PO (20:49)
[2024-03-04] MEDS: APRESOLINE 50 MG PO (20:49)
[2024-03-04] MEDS: SEROQUEL 400 MG PO (20:50)
[2024-03-04] MEDS: COREG 25 MG PO (20:59)
[2024-03-04 23:32] LABS: Troponin I 0.071 ng/ml
[2024-03-05] VITALS (25 sets, daily range): BP systolic 97–149; BP diastolic 59–93; BMI 21.4
--- NOTE | 2024-03-05 00:09 | PTCARENOTE ---
Addendum entered by Natalie Mars RN 03/05/24 00:11:
Bladder scanned for 92 mls.
Original Note:
Patient febrile to 102, COMPENSATION COORDINATOR notified, put onto cooling blanket with goal temp of 100.4. Otherwise patient assessment unchanged from previous. Safe environment maintained, call roca within reach.
[2024-03-05] MEDS: TYLENOL 650 MG PO ×6 (00:13→20:49)
[2024-03-05] MEDS: SOLU-MEDROL PF 60 MG IV (03:33)
[2024-03-05 03:50] LABS: % Basophils 0.3 % (0-2); % Immature Granulocytes 7.2 % (0-0.5); % Lymphocytes 3.7 % (20.5-51.1); % Neutrophils 84.8 % (42.2-75.2); Absolute Immature Granulocytes 0.6 10^3/uL (0-0.05); Absolute Lymphocytes 0.3 10^3/uL (1.2-3.4); Absolute Monocytes 0.4 10^3/uL (0.1-0.6); Absolute Neutrophils 7.5 10^3/uL (1.4-6.5); Hemoglobin 8.8 g/dL (12.0-16.0); Mean Corp Hgb Conc. 32.6 g/dL (33.0-37.0); Mean Corpuscular Hgb 31.1 pg (27.0-31.0); Mean Corpuscular Volume 95.4 fL (81.0-99.0); Mean Platelet Volume 9.2 fL (7.4-10.4); Nucleated Red Blood Cells % 0 %; Platelet Count 137 10^3/uL (130-400); Red Blood Cell Count 2.83 10^6/uL (4.20-5.40); Red Cell Dist. Width 17.2 % (11.5-14.5); White Blood Cell Count 8.8 10^3/uL (4.8-10.8)
[2024-03-05 04:21] LABS: ALT (SGPT) 14 U/L (0-35); AST (SGOT) 25 U/L (14-36); Albumin 3.3 g/dl (3.5-5.0); Alkaline Phosphatase 94 U/L (38-126); Blood Urea Nitrogen 39 mg/dl (7-17); Calcium 10.3 mg/dl (8.4-10.2); Carbon Dioxide 29 mmol/L (22-30); Chloride 94 mmol/L (98-107); Estimated Creatinine Clearance 15 ml/min; Glucose 87 mg/dl (70-99); Magnesium 2.1 mg/dl (1.6-2.3); Potassium 4.2 mmol/L (3.5-5.1); Sodium 134 mmol/L (135-145); Total Bilirubin 1.4 mg/dl (0.2-1.3); Total Protein 6.5 g/dl (6.3-8.2)
[2024-03-05 04:22] LABS: Troponin I 0.057 ng/ml
[2024-03-05 04:52] LABS: Hepatitis B Surface Antigen Negative (Negative); TSH 2.35 uIU/ml (0.47-4.68)
--- NOTE | 2024-03-05 05:12 | PTCARENOTE ---
Labs sent, patient sleeping comfortably. Otherwise patient assessment unchanged from previous.
--- NOTE | 2024-03-05 07:23 | W.PN.HOSP.TC ---
Today's Communication/Plan
-
With MRSA screen being negative will discontinue vancomycin
Initial blood cultures noted to be positive for white species/continue cefepime
Continue to monitor febrile course
Titration of oxygen as per pulmonary presently on high flow looks to be able to go to mid flow
Fluid management as per nephrology and further removal of fluid per ultrafiltration and HD
Assessment / Plan
Assessment / Plan
53-year-old female on long-term dialysis since August with an AV fistula in her left brachialis who over the weekend developed increasing fatigue and lethargy but especially noted this morning and also had nausea and vomiting increasing shortness
of breath and she was too ill today to leave her scheduled dialysis that she gets Monday she has been diagnosed with end-stage renal disease since August of this past year but had described increasing fatigue over the weekend has
not felt right ever since she started dialysis. She also related a little bit of blood in her sputum this morning. She is not aware of a febrile course but presented with a fever of 103 here. She remains significantly hypoxic and is presently on
a BiPAP mask with continued tachypnea. BP remains relatively stable at 150s over 90 and heart rate is 10 5-1 10 she does relate chronic lower extremity edema with the right leg being out of proportion to the left as far as edema is concerned. She
received an empiric course of vancomycin and cefepime here in the emergency room/rest of his history is rather sketchy even from patient's mother at bedside who did supply a full list of her medications and the patient apparently has schizophrenia
is on Seroquel also restless legs and is treated for hypertensive urgency in the past.
Her most recent echocardiogram was in 2021 at that time an EF of 55 to 60% was noted with a normal RV and function trace mitral regurg and tricuspid regurg was noted no significant change in 2018.
-She is able to states she was born with 1 kidney but could not relate how she entered into end-stage renal disease in the necessity for hemodialysis. She is not diabetic. She does not relate a history of breast cancer. And she does have have
hyperlipidemia with prior surgeries including lumbar surgery
Sepsis present on admission with hypoxic respiratory failure
-Febrile illness/blood cultures initially positive
-Presumed source is pneumonic infiltrate seen on chest x-ray
-Treat as community-acquired pneumonia
-COVID and influenza negative
-Significant hypoxic on presentation could not tolerate BiPAP/remains on high flow oxygen which appears to could be transition to mid flow today
-Got empiric dosage of cefepime and vancomycin to continue
-Continue on Decadron IV and nebulization/not sure at this point is a requirement for continued IV steroids
-proBNP and troponins pending
-May have an element of fluid overload heart failure
-Reviewed most recent 2D echocardiogram from 2021 which was within normal limits
-Await blood culture results
-Pulmonary drapery hemmer automatic consultation
End-stage renal disease
-Some element of fluid overload/
Ultra filtration removal of 2.5 kg yesterday
-Bilateral venous Dopplers of both lower extremities negative for DVT
-Secondary hyperparathyroidism and hyperphosphatemia
-Continue Cinacalcet/Lokelma/Renvela
= On usual Monday schedule
Troponin elevation felt to be of nonischemic non-OH origin
-Trending down and will be chronically elevated in the setting of ESRD
Essential hypertension
-Continue carvedilol twice daily
-Amlodipine?(Contributing to chronic leg edema)?/But improved after ultrafiltration removal yesterday
-Hydralazine 50 3 times daily
Schizophrenia
-Continue quetiapine
-Sertraline 100 nightly
Restless leg syndrome
-Underlying neuropathy
-Continue gabapentin
-Continue pramipexole
DVT prophylaxis with heparin/avoid compression devices with peripheral edema
-Full CODE STATUS
Anticipated Discharge: 24 - 48 hours
Subjective/Interval History
-
Date of Service: March 05, 2024
Exhibiting no further tachypnea awoke from a sound sleep remained on high flow oxygen throughout the night with stable saturation values of 95% throughout alert and back to her baseline cognitively this morning. Had 3 kg removed via dialysis
yesterday/was however febrile throughout most of the night seems to be trending down this morning
Objective Data
-
Labs:
Laboratory Results
03/05/24
03:39
WBC 8.8
Hgb 8.8 L
Hct 27.0 L
Plt Count 137 D
Sodium 134 L
Potassium 4.2
Chloride 94 L
Carbon Dioxide 29
BUN 39 H
Creatinine 3.6 H
Glucose 87
Calcium 10.3 H
Total Bilirubin 1.4 H
AST 25
ALT 14
Alkaline Phosphatase 94
Vital Signs:
Vital Signs
Temp Pulse Resp BP Pulse Ox
98.7 F 80 17 123/78 97
03/05/24 05:13 03/05/24 06:15 03/05/24 06:15 03/05/24 06:00 03/05/24 06:15
I&O
03/04/24 03/05/24 03/06/24
06:59 06:59 06:59
Intake Total 240 / 240
Balance 240 / 240
Review of Systems
-
History Source: Patient
Constitutional: Reports Fever
EENT: Reports No Symptoms Reported
Respiratory: Reports Trouble Breathing
Psych: Reports Depressed
Physical Exam
-
General: No Apparent Distress
HEENT: Normocephalic
Respiratory: Crackles and Decreased Breath Sounds
Cardiac: Regular Rhythm
GI: Soft and Nontender
Skin: Warm
Neuro: Awake, Alert and Oriented
Psych: Calm
Data Reviewed
-
Total Time Spent with Patient (in minutes): 67
Diagnostic Radiology: Report Reviewed by me (Reviewed chest x-ray)
Medical Tests (Nuc Med, Echo etc): Report Reviewed by me (Reviewed venous Doppler)
Labs: Labs Reviewed by me (White count 8.8 hemoglobin 8.8 creatinine down to 3.6/troponin trending down from 0.099-0.057)
--- NOTE | 2024-03-05 07:45 | W.PN.INTV ---
Today's Communication / Plan
Recommendations
O2
Atb
BDs prn
HD
Assessment
-
Assessment:
Ms Maryanne Barroso is a 53/W adm 03-04 with 2 d h/o worsening fatigue, lethargy, n/v and dyspnea (could not go for regular HD on DOA due to symptoms). Reported mild hemoptysis on morning of adm. At ER, febrile at 103F, hypoxic, BP 150/90, mild
tachycardia, reportedly no change in R>L SHOBHA edema. Started on BPAP, vancomycin/cefepime, CXR with basilar infiltrate
Impression:
R basilar infiltrate
Fever
Hemoptysis, pinkish frothy sputum
GNB bacteriemia
Pulmonary vascular congestion
Leukopenia
Elevated BNP
COVID/flu negative
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
CKD, on HD MWF since Aug 2023, LUE AVF
Secondary hyperparathyroidism
Solitary kidney
Mild MR, small PFO on TTE Jul 2023
Anxiety
Depression
Schizophrenia
L spine surgery
RLS
Smoker
Plan:
Admitted to ICU for resp distress, fever and hemoptysis
R basilar infiltrate
Mild hemoptysis of pinkish frothy sputum, witnessed: compounded by HF state (pulm vasc congestion on CXR, last HD 03-01) and platelet dysfunction secondary to CKD
Continue O2 protocol
Did not tolerate BPAP at ER, started on HFNC
HFNC weaned down to MFNC this morning, resp ahn has shown significant improvement
Sputum cx negative
Blood cxs GNB x2: so far E coli reported, further details pending
MRSA screening negative
Empiric atbs since adm: cefepime/vancomycin (vanco now discontinued)
Continue monotherapy with cefepime pending cx results as patient is otherwise clinically stabilizing, adm fever (103F) is improving and so far resolved since earlier this AM
Reported wheezing PROCESS CHEMIST, started on IV MP at ER, likely component of acute bronchitis plus HF state
Discontinue IV MP
prn DNs
Follow trops
SHOBHA doppler negative
HD 04-15: UF 2.5 kg
Renal following
Continue a-HTN regimen, including diuretic
Continue sc hep
OOB as tolerated
Stable for transfer to telemetry
Pulm to follow
No critical care time charged today
Subjective Dataa
Subjective Data
Date of Service:
Date of Service: March 05, 2024
Chief Complaint: Business Dean Follow Up
Subjective:
No major events reported overnight
Able to titrate down HFNC, now down to MFNC this morning, resp ahn reports significant improvement
Received HD -15, UF 2.5 kg
Review of Systems
General: Fever (n), Sweats and Satisfactory Appetite
HEENT: Epistaxis (n) and Dysphagia (n)
Cardiopulmonary: Dyspnea (n at rest on O2) and Hemoptysis (resolved last night)
GI: Abdominal Pain (n), Nausea (n) and Vomiting (n)
Neuro: Weakness (n)
Objective Data
Data Reviewed
Vital Signs / I&O / Oxygen:
Vital Signs
Temp Pulse Resp BP Pulse Ox
98.7 F 80 17 123/78 97
03/05/24 05:13 03/05/24 06:15 03/05/24 06:15 03/05/24 06:00 03/05/24 06:15
Intake and Output
03/04/24 03/05/24 03/06/24
06:59 06:59 06:59
Intake Total 240 / 240
Balance 240 / 240
SaO2 97
Nasal Cannula flow liters per 50
minute
Physical Exam
General: Comfortable
HEENT: Normocephalic and Moist Mucous Membranes
Cardiovascular: Regular Rhythm, Peripheral Edema (n) and Other (LUE AVF)
Respiratory: Wheeze (n), Rhonchi, Non-Labored Respirations and Stridor (n)
GI: Soft, Non Distended and Non Tender
Neurology: Awake, AO x 3 and No Motor Deficits
Skin: Warm
Labs/Micro/Reports
Lab Data
03/05/24 03:39
03/05/24 03:39
Laboratory Results
03/04/24 03/04/24
10:52 12:27
PT 16.8 H
INR 1.39
APTT 33.0
pH 7.46 H
pCO2 34
pO2 74 L
HCO3 24.2
O2 Delivery Level
Microbiology
03/04/24 10:52 Blood/Venous Blood Culture - Preliminary
Positive culture in progress
03/04/24 10:52 Blood/Venous Gram Stain - Final
03/04/24 10:59 Blood/Venous Blood Culture - Preliminary
Positive culture in progress
03/04/24 10:59 Blood/Venous Gram Stain - Final
03/04/24 15:50 Sputum Gram Stain - Preliminary
03/04/24 15:02 Nose Nasal Screen MRSA (PCR) - Final
MRSA not detected - performed by PCR methodology.
03/04/24 10:52 Nasal Swab Influenza Types A & B (CAT) - Final
Negative for Influenza A & B, NAAT
Negative results must be combined with clinical observations
and patient history.
Nucleic Acid Amplification test (NAAT)performed on the
[employer] platform.
[2024-03-05] MEDS: RENVELA 800 MG PO ×3 (08:17→15:48)
[2024-03-05] MEDS: REQUIP 0.5 MG PO ×2 (08:17→20:48)
[2024-03-05] MEDS: LASIX 80 MG PO (08:17)
[2024-03-05] MEDS: MIRAPEX 0.125 MG PO ×3 (08:18→20:48)
[2024-03-05] MEDS: HEPARIN 5000 UNITS SC ×2 (08:18→20:49)
[2024-03-05] MEDS: APRESOLINE 50 MG PO ×2 (08:18→15:48)
[2024-03-05] MEDS: CRESTOR 10 MG PO (08:18)
[2024-03-05] MEDS: COREG 25 MG PO ×2 (08:18→20:49)
[2024-03-05] MEDS: NEURONTIN 100 MG PO ×3 (08:18→20:48)
--- NOTE | 2024-03-05 08:30 | PTCARENOTE ---
Recd 0730 asleep, awakens easily, no c/o. highflow noted, titrating, down to midflow and tolerating. ordered and eating clear liquids, seen by Dr. Maxwell and Vero. Agreeable to get OOB later. purewick removed, oliguric.
--- NOTE | 2024-03-05 09:26 | W.PN.NEPH.PH ---
Addendum entered and electronically signed by Lance Pham DO 03/05/24 09:53:
Correction: Patient did not have atrial fibrillation event last p.m.
Original Note:
Today's Communication / Plan
-
Dialysis tomorrow
Will attempt to reduce dry weight as hemodynamically tolerated
Assessment/Plan
-
Impression:
RLL PNA (Fevers, Hemoptysis)/Hypoxia
GNR bacteremia
End-stage renal disease Monday at [facility]
Hypertension
Secondary hyperparathyroidism
Solitary kidney
Hyperphosphatemia
Anxiety depression
Dyslipidemia
History of extremity involuntary movements
Delusional hyponatremia
Chronic Hyperkalemia
Left upper extremity AV fistula
Plan:
Patient presented critically ill with respiratory distress and hypoxia in the setting of pneumonia
provided urgent dialysis in case hypoxia is also volume related, orders provided for tomorrow
Cefepime setting of GNR bacteremia
Patient with new onset of atrial fibrillation last night, now in sinus rhythm and Cardizem drip off
Maintain current oral antihypertensives in setting of htn
Maintain Cinacalcet for secondary hyperparathyroid
Maintain sevelamer with meals Re: Hyperphosphatemia
Maintain Lokelma for hyperkalemia
Fluid restriction of 1500 cc daily for ESRD and hyponatremia
-
-
Date of Service: March 05, 2024
CC / HPI / ROS
-
Chief Complaint:
End-stage renal disease
History of Present Illness:
End-stage renal disease on Monday schedule
Hemodynamically stable at this, Cardizem off, now in sinus rhythm
Remains on cefepime in setting of gram negative bacteremia
Review of Systems:
Lethargic
Remains on oxygen therapy
Febrile earlier this
Left upper extremity AV fistula
Labs
-
Labs:
WBC 8.8 10^3/uL (4.8-10.8) 03/05/24 03:39
RBC 2.83 10^6/uL (4.20-5.40) L 03/05/24 03:39
Hgb 8.8 g/dL (12.0-16.0) L 03/05/24 03:39
Hct 27.0 % (37.0-47.0) L 03/05/24 03:39
Plt Count 137 10^3/uL (130-400) D 03/05/24 03:39
Sodium 134 mmol/L (135-145) L 03/05/24 03:39
Potassium 4.2 mmol/L (3.5-5.1) 03/05/24 03:39
Chloride 94 mmol/L (98-107) L 03/05/24 03:39
Carbon Dioxide 29 mmol/L (22-30) 03/05/24 03:39
BUN 39 mg/dl (7-17) H 03/05/24 03:39
Creatinine 3.6 mg/dL (0.6-1.0) H 03/05/24 03:39
eGFR 14.30 03/05/24 03:39
Glucose 87 mg/dl (70-99) 03/05/24 03:39
Calcium 10.3 mg/dl (8.4-10.2) H 03/05/24 03:39
Tqq-F-Wlsfoidxmbb Pept > 99669 pg/ml 03/04/24 10:59
Albumin 3.3 g/dl (3.5-5.0) L 03/05/24 03:39
Physical Exam
-
Vital Signs:
Vital Signs
Temp Pulse Resp BP Pulse Ox
98.1 F 79 16 107/72 98
03/05/24 07:55 03/05/24 08:18 03/05/24 08:00 03/05/24 08:18 03/05/24 09:06
Cardiovascular:: Regular rate and rhythm
Respiratory:: Bilateral: Coarse and Bilateral: Rhonchi
Lung Excursion:: Normal
Abdomen:: Nontender and Soft
Bowel Sounds:: Normal
Extremity Edema:: +1: Bilateral:
Victoria Catheter: No
Other Findings::
Left upper extremity AV fistula: Aneurysmal dilatation with thrill and bruit
--- NOTE | 2024-03-05 10:45 | CM ---
Patient seen at bedside. Patient on O2. Patient states that she lives with her mother and brother in a split level home. Patient PCP is Dr. Whitfield at [facility]. Patient uses the [facility] in [place] for pharmacy needs. Patient
stated that she has not had VN supports in the past and has no home DME. Patient currently on O2 and requested information about [facility], information provided patient states she wants to review it when she is discharged home. Patient plan is
home with family. CM will continue to follow for discharge planning needs.
Plan; home with VN vs SNF; watch PT/OT assessments and home O2 needs.
[2024-03-05 11:44] LABS: Urine Albumin 3+ (Neg - Trace); Urine Bilirubin Negative (Negative); Urine Character Clear (Clear); Urine Color Yellow; Urine Glucose 1+ (Negative); Urine Ketone Negative (Negative); Urine Leukocyte Negative (Negative); Urine Nitrite Negative (Negative); Urine Occult Blood Negative (Negative); Urine Urobilinogen Negative (Neg - 1+)
[2024-03-05 12:01] LABS: Urine Squamous Cell >30 /LPF (Few)
[2024-03-05 12:02] LABS: Urine Red Blood Cell 0-2 /HPF (0-2)
--- NOTE | 2024-03-05 13:43 | PTCARENOTE ---
resting when undisturbed, gait steady, OOB to bathroom, presently back in bed eating clear liquid lunch. Tolerating oxygen.
--- NOTE | 2024-03-05 15:56 | PTCARENOTE ---
med surg, family visiting, diet advanced. in good spirits. VS noted stable, tolerating 3l nc.
--- NOTE | 2024-03-05 16:46 | PTCARENOTE ---
oob eating dinner.
[2024-03-05] MEDS: MAXIPIME 1000 MG IV (17:14)
[2024-03-05] MEDS: STERILE WATER FOR INJECTION 10 ML IV (17:14)
[2024-03-05] MEDS: SENSIPAR 60 MG PO (17:14)
--- NOTE | 2024-03-05 17:15 | PTCARENOTE ---
no change, transported to [facility] room 2126 via on oxygen 3l. settled in room. genesis mahan.
[2024-03-05] MEDS: NORVASC 10 MG PO (20:48)
[2024-03-05] MEDS: ZOLOFT 100 MG PO (20:48)
[2024-03-05] MEDS: SEROQUEL 400 MG PO (20:49)
[2024-03-05] MEDS: DUONEB 3 ML INH (21:39)
[2024-03-05] MEDS: APRESOLINE PO (22:17)
[2024-03-05] MEDS: TYLENOL PO (23:47)
[2024-03-06] MEDS: TYLENOL PO (04:54)
[2024-03-06 06:00] VITALS: BMI 20.8
[2024-03-06 06:13] VITALS: BMI 20.8
--- NOTE | 2024-03-06 07:23 | W.PN.HOSP.TC ---
Today's Communication/Plan
-
Await follow-up of blood cultures and repeat set today
Continue cefepime
Trying to wean down further off oxygen
4 he scheduled day of hemodialysis today
Unclear source of gram-negative rods in blood as urinalysis was largely unremarkable
Assessment / Plan
Assessment / Plan
53-year-old female on long-term dialysis since August with an AV fistula in her left brachialis who over the weekend developed increasing fatigue and lethargy but especially noted this morning and also had nausea and vomiting increasing shortness
of breath and she was too ill today to leave her scheduled dialysis that she gets Monday she has been diagnosed with end-stage renal disease since August of this past year but had described increasing fatigue over the weekend has
not felt right ever since she started dialysis. She also related a little bit of blood in her sputum this morning. She is not aware of a febrile course but presented with a fever of 103 here. She remains significantly hypoxic and is presently on
a BiPAP mask with continued tachypnea. BP remains relatively stable at 150s over 90 and heart rate is 10 5-1 10 she does relate chronic lower extremity edema with the right leg being out of proportion to the left as far as edema is concerned. She
received an empiric course of vancomycin and cefepime here in the emergency room/rest of his history is rather sketchy even from patient's mother at bedside who did supply a full list of her medications and the patient apparently has schizophrenia
is on Seroquel also restless legs and is treated for hypertensive urgency in the past.
Her most recent echocardiogram was in 2021 at that time an EF of 55 to 60% was noted with a normal RV and function trace mitral regurg and tricuspid regurg was noted no significant change in 2018.
-She is able to states she was born with 1 kidney but could not relate how she entered into end-stage renal disease in the necessity for hemodialysis. She is not diabetic. She does not relate a history of breast cancer. And she does have have
hyperlipidemia with prior surgeries including lumbar surgery
Sepsis present on admission with hypoxic respiratory failure
-Febrile illness/blood cultures initially positive/GNR
-Presumed source is pneumonic infiltrate seen on chest x-ray
-Treat as community-acquired pneumonia
-COVID and influenza negative
-Significant hypoxic on presentation could not tolerate BiPAP/remains on high flow oxygen which appears to could be transition to mid flow today
-Got empiric dosage of cefepime vancomycin/discontinue vancomycin with negative MRSA screen
-Continue on Decadron IV and nebulization/not sure at this point is a requirement for continued IV steroids
-proBNP and troponins pending
-May have an element of fluid overload heart failure
-Reviewed most recent 2D echocardiogram from 2021 which was within normal limits
-Await blood culture results
-Pulmonary senior information systems architect consultation
End-stage renal disease
-Some element of fluid overload/
Ultra filtration removal of 2.5 kg yesterday
-Bilateral venous Dopplers of both lower extremities negative for DVT
-Secondary hyperparathyroidism and hyperphosphatemia
-Continue Cinacalcet/Lokelma/Renvela
= On usual Monday schedule
Troponin elevation felt to be of nonischemic non-[place] origin
-Trending down and will be chronically elevated in the setting of ESRD
Essential hypertension
-Continue carvedilol twice daily
-Amlodipine?(Contributing to chronic leg edema)?/But improved after ultrafiltration removal yesterday
-Hydralazine 50 3 times daily
Schizophrenia
-Continue quetiapine
-Sertraline 100 nightly
Restless leg syndrome
-Underlying neuropathy
-Continue gabapentin
-Continue pramipexole
DVT prophylaxis with heparin/avoid compression devices with peripheral edema
-Full CODE STATUS
Anticipated Discharge: 24 - 48 hours
Subjective/Interval History
-
Date of Service: March 06, 2024
Oxygen requirements now down to 3 L no overt dyspnea noted scheduled for hemodialysis today scheduled today. Low-grade temperature 99 overnight. No other symptoms.
Objective Data
-
Labs:
Laboratory Results
03/06/24
06:00
WBC Pending
Hgb Pending
Hct Pending
Plt Count Pending
Sodium Pending
Potassium Pending
Chloride Pending
Carbon Dioxide Pending
BUN Pending
Creatinine Pending
Glucose Pending
Calcium Pending
Total Bilirubin Pending
AST Pending
ALT Pending
Alkaline Phosphatase Pending
Vital Signs:
Vital Signs
Temp Pulse Resp BP Pulse Ox
99.3 F 87 22 112/82 94
03/05/24 23:12 03/05/24 23:12 03/05/24 23:12 03/05/24 23:12 03/05/24 23:12
I&O
03/05/24 03/06/24 03/07/24
06:59 06:59 06:59
Intake Total 240 / 240 1250 / 1250
Output Total 100 / 100
Balance 240 / 240 1150 / 1150
Review of Systems
-
History Source: Patient
Constitutional: Denies Fever (Low-grade 99.3 last night)
Respiratory: Reports No Symptoms
Cardiac: Reports No Symptoms
Abdomen/GI: Reports No Symptoms
Physical Exam
-
General: Well Developed
HEENT: Normocephalic
Respiratory: Clear to Auscultation
Cardiac: Regular Rhythm
GI: Soft, Nontender and Nondistended
Musculoskeletal: Other (Left arm AV fistula intact)
Neuro: Awake and Alert
Data Reviewed
-
Total Time Spent with Patient (in minutes): 45
Labs: Labs Reviewed by me (Initial set of blood cultures positive for gram-negative rods E. coli pending further speciation/today's CBC pending/urinalysis was basically clear)
--- NOTE | 2024-03-06 07:51 | W.PN.PUL3 ---
Today's Communication / Plan
-
Follow-up surveillance blood cultures
Continue HD
Wean off HD as tolerated and maintain SpO2 >90%
Ambulatory pulse ox prior to discharge
Start Tesgilberto[place] Perlcarlos
PT/OT
Pulmonary service will continue to briefly follow along
Assessment
-
Assessment:
Ms Maryanne Barroso is a 53/W adm 03-04 with 2 d h/o worsening fatigue, lethargy, n/v and dyspnea (could not go for regular HD on DOA due to symptoms). Reported mild hemoptysis on morning of adm. At ER, febrile at 103F, hypoxic, BP 150/90, mild
tachycardia, reportedly no change in R>L SHOBHA edema. Started on BPAP, vancomycin/cefepime, CXR with basilar infiltrate
Impression:
R basilar infiltrate
Fever
Hemoptysis, pinkish frothy sputum
E. coli bacteriemia (tatum-sensitive)
Pulmonary vascular congestion
Leukocytosis
Elevated BNP
COVID/flu negative
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
CKD, on HD MWF since Aug 2023, LUE AVF
Secondary hyperparathyroidism
Solitary kidney
Mild MR, small PFO on TTE Jul 2023
Anxiety
Depression
Schizophrenia
L spine surgery
RLS
Smoker
Plan:
Was admitted to ICU for resp distress, fever and hemoptysis
R basilar infiltrate
Mild hemoptysis of pinkish frothy sputum, witnessed: compounded by HF state (pulm vasc congestion on CXR, last HD 03-01) and platelet dysfunction secondary to CKD
Continue O2 protocol
Did not tolerate BPAP in ER, started on HFNC --> now on nasal cannula @ 3L/min, breathing comfortably
Maintain SpO2 >90-94%
Sputum cx negative
Blood cxs E. coli x2
Surveillance blood cultures to be repeated today
MRSA screening negative
Empiric atbs since adm: cefepime/vancomycin (vanco has been discontinued)
Continue monotherapy with cefepime pending cx results as patient is otherwise clinically stabilizing, adm fever (103F) is improving and so far resolved since 03/05/2024
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
Discontinued IV MP
prn DNs
Troponin peaked at 0.099 on 03/04. No longer need to trend
SHOBAH doppler negative
HD 03-04: UF 2.5 kg
Renal following
Continue a-HTN regimen, including diuretic
Continue sc hep
OOB as tolerated
PT/OT
Pulm to briefly follow along.
Total time spent today was 35 minutes for this encounter. Time includes reviewing laboratory test/imaging results, reviewing pertinent medical records, obtaining and reviewing medical history, performing an appropriate exam, ordering medications,
tests and procedures. Time also includes documentation of this encounter, coordinating patient care and communicating with other healthcare professionals. Total time does not include separately billed tests performed on this date of service.
Subjective Data
-
Date of Service:
Date of Service: March 06, 2024
Chief Complaint: Pulmonary Follow Up
Subjective:
Patient seen today at bedside. Complains of cough which is her main complaint. Currently on 3 L/min nasal cannula breathing comfortably. Still feels fatigued and shortness of breath with exertion. Denies chest pain, headache, fevers or chills.
Review of Systems
General: Other (Negative unless mentioned above)
Objective Data
Data Reviewed
Vital Signs / I&O / Oxygen:
Vital Signs
Temp Pulse Resp BP Pulse Ox
99.3 F 87 22 112/82 94
03/05/24 23:12 03/05/24 23:12 03/05/24 23:12 03/05/24 23:12 03/05/24 23:12
Intake and Output
03/05/24 03/06/24 03/07/24
06:59 06:59 06:59
Intake Total 240 / 240 1250 / 1250
Output Total 100 / 100
Balance 240 / 240 1150 / 1150
SaO2 94
Nasal Cannula flow liters per 2
minute
Physical Exam
General: Respiratory Distress (Negative) and Comfortable
HEENT: Normocephalic and Anicteric
Cardiovascular: Peripheral Edema (Negative)
Respiratory: Wheeze (Negative), Crackles (bilaterally), Rhonchi (Negative) and Non-Labored Respirations
GI: Soft, Non Distended and Non Tender
Neurology: Awake and Alert
Skin: Warm and Dry
Labs/Micro/Reports
Microbiology
03/04/24 10:59 Blood/Venous Blood Culture - Preliminary
Positive culture in progress
03/04/24 10:59 Blood/Venous Gram Stain - Final
03/04/24 10:52 Blood/Venous Blood Culture - Preliminary
Escherichia coli
03/04/24 10:52 Blood/Venous Gram Stain - Final
03/04/24 15:50 Sputum Respiratory Culture - Preliminary
Usual Respiratory Peri
03/04/24 15:50 Sputum Gram Stain - Preliminary
03/04/24 15:02 Nose Nasal Screen MRSA (PCR) - Final
MRSA not detected - performed by PCR methodology.
03/04/24 10:52 Nasal Swab Influenza Types A & B (CAT) - Final
Negative for Influenza A & B, NAAT
Negative results must be combined with clinical observations
and patient history.
Nucleic Acid Amplification test (NAAT)performed on the
[employer] platform.
[2024-03-06 08:00] VITALS: BP 115/68
[2024-03-06] MEDS: RENVELA 800 MG PO ×2 (08:31→17:01)
[2024-03-06] MEDS: APRESOLINE PO (08:32)
[2024-03-06] MEDS: COREG PO (08:33)
[2024-03-06] MEDS: TYLENOL 650 MG PO ×4 (08:33→20:35)
[2024-03-06] MEDS: NEURONTIN 100 MG PO ×3 (08:33→22:37)
[2024-03-06] MEDS: REQUIP 0.5 MG PO ×2 (08:34→20:34)
[2024-03-06] MEDS: HEPARIN 5000 UNITS SC ×2 (08:34→20:34)
[2024-03-06] MEDS: CRESTOR 10 MG PO (08:34)
[2024-03-06] MEDS: MIRAPEX 0.125 MG PO ×3 (08:34→22:38)
[2024-03-06] MEDS: LASIX PO (08:35)
[2024-03-06] MEDS: LOKELMA 10 GRAM PO (08:38)
[2024-03-06 08:41] LABS: Hematocrit 26.8 % (37.0-47.0); Mean Corp Hgb Conc. 33.6 g/dL (33.0-37.0); Mean Corpuscular Hgb 31.6 pg (27.0-31.0); Mean Platelet Volume 10.9 fL (7.4-10.4); Nucleated Red Blood Cells % 0 %; Platelet Count 148 10^3/uL (130-400); Red Blood Cell Count 2.85 10^6/uL (4.20-5.40); Red Cell Dist. Width 17.2 % (11.5-14.5); White Blood Cell Count 13.8 10^3/uL (4.8-10.8)
[2024-03-06 09:27] LABS: ALT (SGPT) 15 U/L (0-35); AST (SGOT) 25 U/L (14-36); Absolute Neutrophils -Man Diff 11.8 10^3/uL (1.4-6.5); Albumin 3.5 g/dl (3.5-5.0); Alkaline Phosphatase 108 U/L (38-126); Anisocytosis Slight; Band Neutrophils 9 % (0-3); Blood Urea Nitrogen 81 mg/dl (7-17); Calcium 9.5 mg/dl (8.4-10.2); Carbon Dioxide 27 mmol/L (22-30); Chloride 93 mmol/L (98-107); Estimated Creatinine Clearance 11 ml/min; Glucose 85 mg/dl (70-99); Lymphocytes 12 % (20-51); Monocytes 2 % (2-9); Normal RBC Morphology No; Platelets Checked Yes; Segmented Neutrophils 77 % (42-75); Sodium 132 mmol/L (135-145); Total Bilirubin 1.3 mg/dl (0.2-1.3); Total Cells Counted 100; Total Protein 6.9 g/dl (6.3-8.2); eGFR 9.64
--- NOTE | 2024-03-06 09:36 | PTCARENOTE ---
Dr. Maxwell notified of critical lab Creatinine 5.0 0934. placed in chart
[2024-03-06 10:49] VITALS: BMI 20.8
--- NOTE | 2024-03-06 10:53 | PN.CDI ---
CDI
- -
CDI:
Physician Documentation Request
Admit Date: 03/04/24 12:21
Dear Doctor Alissa,
03/06 Hospitalist PN: 'Troponin elevation felt to be of nonischemic non-[place] origin'
Laboratory Tests
03/04/24 03/04/24 03/05/24
15:02 22:39 03:39
Troponin I 0.099 H* 0.071 H* D 0.057 H*
Please clarify the following regarding the documented troponin elevation:
Non-ischemic myocardial injury
Lab abnormality
Other
Use of terms such as suspected, likely, concern for, or probable (associated with a specific diagnosis that is being evaluated, monitored, or treated as if it exists) are acceptable and can be coded in the inpatient setting, when documented at the
time of discharge.
Thank you,
Darcy Howard RN, BSN
CDI Specialist
Available via [employer] text
Please use your independent medical judgment in providing your response.
[2024-03-06] MEDS: RENVELA PO (12:55)
--- NOTE | 2024-03-06 12:57 | W.PN.NEPH.HD ---
Assessment
-
- feeling well on HD, no complaints
- continued on nasal canula
Progress Note - Hemodialysis
-
Date of Service: March 06, 2024
Duration: 30 minutes and 3 hours
Potassium Bath: 3
Calcium Bath: 2.5
Opti-Dialyzer: 160
Ultrafiltration: Other
Blood Flow: 400
Dialysate Flow: 600
[2024-03-06] MEDS: RETACRIT 6000 UNITS IV (14:18)
[2024-03-06] MEDS: HEPARIN 500 UNITS IV (14:18)
[2024-03-06 16:00] VITALS: BP 147/77
--- NOTE | 2024-03-06 16:03 | CM ---
Patient has been on HD since August,. The facility is [facility] in [facility]. She was on a schedule and has been switched to -T- 11AM to 4PM. At baseline does not use O2. Will need to evaluate if home O2 is required. Discharge
Plan of Care TBD based on medical progression.
[2024-03-06] MEDS: SENSIPAR 60 MG PO (17:01)
[2024-03-06] MEDS: STERILE WATER FOR INJECTION 10 ML IV (17:02)
[2024-03-06] MEDS: MAXIPIME 1000 MG IV (17:02)
[2024-03-06] MEDS: APRESOLINE 50 MG PO ×2 (17:02→22:37)
[2024-03-06] MEDS: COREG 25 MG PO (20:36)
[2024-03-06] MEDS: ZOLOFT 100 MG PO (22:34)
[2024-03-06] MEDS: TESSALON PERLES 200 MG PO (22:35)
[2024-03-06] MEDS: SEROQUEL 400 MG PO (22:36)
[2024-03-06] MEDS: NORVASC 10 MG PO (22:38)
[2024-03-06 22:47] VITALS: BP 122/77
[2024-03-07] MEDS: TYLENOL PO ×3 (00:21→23:33)
[2024-03-07 06:00] VITALS: BMI 20.4
[2024-03-07 06:03] LABS: % Basophils 0.8 % (0-2); % Eosinophils 1.9 % (0-6); % Immature Granulocytes 0.7 % (0-0.5); % Lymphocytes 5.6 % (20.5-51.1); % Monocytes 3.5 % (1.7-9.3); % Neutrophils 87.5 % (42.2-75.2); Absolute Basophils 0.1 10^3/uL (0-0.2); Absolute Eosinophils 0.2 10^3/uL (0-0.7); Absolute Immature Granulocytes 0.1 10^3/uL (0-0.05); Absolute Lymphocytes 0.6 10^3/uL (1.2-3.4); Absolute Monocytes 0.4 10^3/uL (0.1-0.6); Absolute Neutrophils 9.3 10^3/uL (1.4-6.5); Hematocrit 25.1 % (37.0-47.0); Hemoglobin 8.3 g/dL (12.0-16.0); Mean Corp Hgb Conc. 33.1 g/dL (33.0-37.0); Mean Corpuscular Hgb 31.4 pg (27.0-31.0); Mean Corpuscular Volume 95.1 fL (81.0-99.0); Mean Platelet Volume 10.3 fL (7.4-10.4); Nucleated Red Blood Cells % 0 %; Platelet Count 127 10^3/uL (130-400); Red Blood Cell Count 2.64 10^6/uL (4.20-5.40); Red Cell Dist. Width 17.1 % (11.5-14.5); White Blood Cell Count 10.6 10^3/uL (4.8-10.8)
[2024-03-07 06:39] LABS: ALT (SGPT) 24 U/L (0-35); AST (SGOT) 39 U/L (14-36); Alkaline Phosphatase 157 U/L (38-126); Blood Urea Nitrogen 46 mg/dl (7-17); Calcium 8.8 mg/dl (8.4-10.2); Carbon Dioxide 31 mmol/L (22-30); Chloride 95 mmol/L (98-107); Estimated Creatinine Clearance 17 ml/min; Glucose 89 mg/dl (70-99); Potassium 3.6 mmol/L (3.5-5.1); Sodium 133 mmol/L (135-145); Total Bilirubin 1.1 mg/dl (0.2-1.3); Total Protein 6.2 g/dl (6.3-8.2); eGFR 17.12
[2024-03-07 07:05] VITALS: BP 116/71
--- NOTE | 2024-03-07 08:23 | W.PN.HOSP.TC ---
Addendum entered and electronically signed by Luis E Maxwell MD 03/07/24 13:36:
Nonischemic myocardial injury
Original Note:
Today's Communication/Plan
-
Will obtain home oxygen screen in the next 24 hours
Will await another 24 hours of second blood cultures to remain hopefully clear if so discharge plan for oral antibiotic
Increase activity
Could possibly discharge after scheduled dialysis tomorrow.
Assessment / Plan
Assessment / Plan
53-year-old female on long-term dialysis since August with an AV fistula in her left brachialis who over the weekend developed increasing fatigue and lethargy but especially noted this morning and also had nausea and vomiting increasing shortness
of breath and she was too ill today to leave her scheduled dialysis that she gets Monday she has been diagnosed with end-stage renal disease since August of this past year but had described increasing fatigue over the weekend has
not felt right ever since she started dialysis. She also related a little bit of blood in her sputum this morning. She is not aware of a febrile course but presented with a fever of 103 here. She remains significantly hypoxic and is presently on
a BiPAP mask with continued tachypnea. BP remains relatively stable at 150s over 90 and heart rate is 10 5-1 10 she does relate chronic lower extremity edema with the right leg being out of proportion to the left as far as edema is concerned. She
received an empiric course of vancomycin and cefepime here in the emergency room/rest of his history is rather sketchy even from patient's mother at bedside who did supply a full list of her medications and the patient apparently has schizophrenia
is on Seroquel also restless legs and is treated for hypertensive urgency in the past.
Her most recent echocardiogram was in 2021 at that time an EF of 55 to 60% was noted with a normal RV and function trace mitral regurg and tricuspid regurg was noted no significant change in 2018.
-She is able to states she was born with 1 kidney but could not relate how she entered into end-stage renal disease in the necessity for hemodialysis. She is not diabetic. She does not relate a history of breast cancer. And she does have have
hyperlipidemia with prior surgeries including lumbar surgery
Sepsis present on admission with hypoxic respiratory failure
-Febrile illness/blood cultures initially positive/GNR/E. coli sensitivities pending/follow-up blood cultures no growth to date would wait another 24 hours to see if continue clearance
-Presumed source is pneumonic infiltrate seen on chest x-ray
-Treat as community-acquired pneumonia
-COVID and influenza negative
-Significant hypoxic on presentation could not tolerate BiPAP/remains on high flow oxygen which appears to could be transition to mid flow today
-Got empiric dosage of cefepime vancomycin/discontinue vancomycin with negative MRSA screen
-Continue on Decadron IV and nebulization/not sure at this point is a requirement for continued IV steroids
-proBNP and troponins pending
-May have an element of fluid overload heart failure
-Reviewed most recent 2D echocardiogram from 2021 which was within normal limits
-Await blood culture results
-Pulmonary chemical dependency attendant consultation
End-stage renal disease
-Some element of fluid overload/
Ultra filtration removal of 2.5 kg yesterday
-Bilateral venous Dopplers of both lower extremities negative for DVT
-Secondary hyperparathyroidism and hyperphosphatemia
-Continue Cinacalcet/Lokelma/Renvela
= On usual Monday schedule
Troponin elevation felt to be of nonischemic non-OR origin
-Trending down and will be chronically elevated in the setting of ESRD
Essential hypertension
-Continue carvedilol twice daily
-Amlodipine?(Contributing to chronic leg edema)?/But improved after ultrafiltration removal yesterday
-Hydralazine 50 3 times daily
Schizophrenia
-Continue quetiapine
-Sertraline 100 nightly
Restless leg syndrome
-Underlying neuropathy
-Continue gabapentin
-Continue pramipexole
DVT prophylaxis with heparin/avoid compression devices with peripheral edema
-Full CODE STATUS
Anticipated Discharge: Within 24 hours
Subjective/Interval History
-
Date of Service: March 07, 2024
Ambulating in room without difficulty denies any shortness of breath denies any chest pain tolerated her hemodialysis yesterday fine. Still on 2 L of nasal flow oxygen.
Objective Data
-
Labs:
Laboratory Results
03/07/24
05:48
WBC 10.6
Hgb 8.3 L
Hct 25.1 L
Plt Count 127 L
Sodium 133 L
Potassium 3.6 D
Chloride 95 L
Carbon Dioxide 31 H
BUN 46 H
Creatinine 3.1 H
Glucose 89
Calcium 8.8
Total Bilirubin 1.1
AST 39 H
ALT 24
Alkaline Phosphatase 157 H
Vital Signs:
Vital Signs
Temp Pulse Resp BP Pulse Ox
99.1 F 84 18 122/77 98
03/06/24 22:47 03/06/24 22:47 03/06/24 22:47 03/06/24 22:47 03/06/24 22:47
I&O
03/06/24 03/07/24 03/08/24
06:59 06:59 06:59
Intake Total 1250 / 1250 980 / 980
Output Total 100 / 100
Balance 1150 / 1150 980 / 980
Review of Systems
-
History Source: Patient
Constitutional: Reports No Symptoms; Denies Fever
Respiratory: Reports Cough (Nonproductive)
Physical Exam
-
General: Well Developed
HEENT: Normocephalic
Respiratory: Clear to Auscultation
Cardiac: Regular Rhythm
GI: Soft, Nontender and Nondistended
Psych: Calm
Data Reviewed
-
Total Time Spent with Patient (in minutes): 54
Labs: Labs Reviewed by me (White count is normalized creatinine down to 3 from 5 after dialysis)
--- NOTE | 2024-03-07 09:01 | W.PN.PUL3 ---
Today's Communication / Plan
-
Follow-up surveillance blood cultures - NGTD
Continue HD per nephrology
Maintain SpO2 >90%
Ambulatory pulse ox prior to discharge --> will order for tomorrow AM
Continue tessalon Perles
PT/OT
Pulmonary service will continue to briefly follow along
Assessment
-
Assessment:
Ms Maryanne Barroso is a 53/W adm 03-04 with 2 d h/o worsening fatigue, lethargy, n/v and dyspnea (could not go for regular HD on DOA due to symptoms). Reported mild hemoptysis on morning of adm. At ER, febrile at 103F, hypoxic, BP 150/90, mild
tachycardia, reportedly no change in R>L SHOBHA edema. Started on BPAP, vancomycin/cefepime, CXR with basilar infiltrate
Impression:
R basilar infiltrate/CAP
Fever
Hemoptysis, pinkish frothy sputum
E. coli bacteriemia (tatum-sensitive)
Pulmonary vascular congestion
Leukocytosis
Elevated BNP
COVID/flu negative
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
CKD, on HD MWF since Aug 2023, LUE AVF
Secondary hyperparathyroidism
Solitary kidney
Mild MR, small PFO on TTE Jul 2023
Anxiety
Depression
Schizophrenia
L spine surgery
RLS
Smoker
Plan:
Was admitted to ICU for resp distress, fever and hemoptysis
R basilar infiltrate
Mild hemoptysis of pinkish frothy sputum, witnessed: compounded by HF state (pulm vasc congestion on CXR, last HD 03-01) and platelet dysfunction secondary to CKD
Continue O2 protocol
Did not tolerate BPAP in ER, started on HFNC --> now weaned down to room air
Maintain SpO2 >90-94%
Check walking pulse ox tomorrow to assess for home O2
Sputum cx negative
Blood cxs E. coli x2
Surveillance blood cultures to be repeated today
MRSA screening negative
Empiric atbs since adm: cefepime/vancomycin (vanco has been discontinued)
Continue monotherapy with cefepime pending cx results as patient is otherwise clinically stabilizing, adm fever (103F) is improving and so far resolved since 03/05/2024
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
Discontinued IV MP
prn DNs
Troponin peaked at 0.099 on 03/04. No longer need to trend
SHOBHA doppler negative
Continue HD as per nephrology
Renal following
Continue a-HTN regimen, including diuretic
Continue sc hep
OOB as tolerated
PT/OT
Pulm to briefly follow along. Plan for patient to go home tomorrow after walking pulse oximetry and after HD.
Total time spent today was 35 minutes for this encounter. Time includes reviewing laboratory test/imaging results, reviewing pertinent medical records, obtaining and reviewing medical history, performing an appropriate exam, ordering medications,
tests and procedures. Time also includes documentation of this encounter, coordinating patient care and communicating with other healthcare professionals. Total time does not include separately billed tests performed on this date of service.
Subjective Data
-
Date of Service:
Date of Service: March 07, 2024
Chief Complaint: Pulmonary Follow Up
Subjective:
Patient seen this morning. She is on room air breathing comfortably. Still complaining of shortness of breath. No acute events ported overnight. Denies headache, chest pain, abdominal pain, diarrhea, fevers or chills.
Review of Systems
General: Other (Negative unless mentioned above)
Objective Data
Data Reviewed
Vital Signs / I&O / Oxygen:
Vital Signs
Temp Pulse Resp BP Pulse Ox
97.9 F 77 18 116/71 92
03/07/24 07:05 03/07/24 10:05 03/07/24 07:05 03/07/24 10:05 03/07/24 07:05
Intake and Output
03/06/24 03/07/24 03/08/24
06:59 06:59 06:59
Intake Total 1250 / 1250 980 / 980
Output Total 100 / 100
Balance 1150 / 1150 980 / 980
SaO2 92
Nasal Cannula flow liters per 1.5
minute
Physical Exam
General: Respiratory Distress (Negative) and Comfortable
HEENT: Normocephalic and Anicteric
Cardiovascular: Peripheral Edema (+1 lower extremity edema)
Respiratory: Wheeze (Negative), Crackles (Negative), Rhonchi (Negative), Non-Labored Respirations and Other (Reduced breath sounds at the bases)
GI: Soft, Non Distended and Non Tender
Neurology: Awake and Alert
Skin: Warm and Dry
Labs/Micro/Reports
Lab Data
03/07/24 05:48
03/07/24 05:48
Microbiology
03/06/24 08:37 Blood/Venous Blood Culture - Preliminary
No Growth in 24 hours- Final report to follow
03/06/24 08:08 Blood/Venous Blood Culture - Preliminary
No Growth in 24 hours- Final report to follow
03/04/24 15:50 Sputum Respiratory Culture - Final
Usual Respiratory Peri
03/04/24 15:50 Sputum Gram Stain - Final
03/04/24 10:59 Blood/Venous Blood Culture - Final
Escherichia coli
03/04/24 10:59 Blood/Venous Gram Stain - Final
03/04/24 10:52 Blood/Venous Blood Culture - Final
Escherichia coli
03/04/24 10:52 Blood/Venous Gram Stain - Final
03/04/24 15:02 Nose Nasal Screen MRSA (PCR) - Final
MRSA not detected - performed by PCR methodology.
03/04/24 10:52 Nasal Swab Influenza Types A & B (CAT) - Final
Negative for Influenza A & B, NAAT
Negative results must be combined with clinical observations
and patient history.
Nucleic Acid Amplification test (NAAT)performed on the
[employer] platform.
[2024-03-07] MEDS: REQUIP 0.5 MG PO ×2 (10:03→20:08)
[2024-03-07] MEDS: COREG 25 MG PO ×2 (10:04→20:10)
[2024-03-07] MEDS: TYLENOL 650 MG PO ×4 (10:04→20:06)
[2024-03-07] MEDS: TESSALON PERLES 200 MG PO ×3 (10:04→22:39)
[2024-03-07] MEDS: NEURONTIN 100 MG PO ×3 (10:04→22:40)
[2024-03-07] MEDS: MIRAPEX 0.125 MG PO ×3 (10:04→22:40)
[2024-03-07] MEDS: LASIX 80 MG PO (10:05)
[2024-03-07] MEDS: HEPARIN 5000 UNITS SC ×2 (10:05→20:07)
[2024-03-07] MEDS: APRESOLINE 50 MG PO ×3 (10:05→22:41)
[2024-03-07] MEDS: CRESTOR 10 MG PO (10:05)
[2024-03-07] MEDS: RENVELA 800 MG PO ×3 (10:05→17:48)
--- NOTE | 2024-03-07 10:55 | CM ---
Patient seen at bedside. Patient plan is to go home with no needs. Patient for possible discharge following HD tomorrow. CM will continue to follow for discharge planning needs.
Plan; home with HD follow up, will need to send flow sheets at discharge
--- NOTE | 2024-03-07 11:04 | W.PN.NEPH.PH ---
Today's Communication / Plan
-
HD tomorrow
Assessment/Plan
-
Impression:
RLL PNA (Fevers, Hemoptysis)/Hypoxia
GNR bacteremia
End-stage renal disease Monday at [facility]
Hypertension
Secondary hyperparathyroidism
Solitary kidney
Hyperphosphatemia
Anxiety depression
Dyslipidemia
History of extremity involuntary movements
Delusional hyponatremia
Chronic Hyperkalemia
Left upper extremity AV fistula
Plan:
Patient presented critically ill with respiratory distress and hypoxia in the setting of pneumonia
HD tomorrow per usual schedule
Cefepime setting of GNR bacteremia. follow up blodo cultures cleared thus far
Maintain current oral antihypertensives in setting of htn (has been normotensive while here)
Maintain Cinacalcet for secondary hyperparathyroid
Maintain sevelamer with meals Re: Hyperphosphatemia
Maintain Lokelma for hyperkalemia
Fluid restriction of 1500 cc daily for ESRD and hyponatremia
-
-
Date of Service: March 07, 2024
CC / HPI / ROS
-
Chief Complaint:
End-stage renal disease
History of Present Illness:
End-stage renal disease on Monday schedule
Hemodynamically stable at this, Cardizem off, now in sinus rhythm
Remains on cefepime in setting of gram negative bacteremia
Review of Systems:
Lethargic
Remains on oxygen therapy
Febrile earlier this
Left upper extremity AV fistula
Labs
-
Labs:
WBC 10.6 10^3/uL (4.8-10.8) 03/07/24 05:48
RBC 2.64 10^6/uL (4.20-5.40) L 03/07/24 05:48
Hgb 8.3 g/dL (12.0-16.0) L 03/07/24 05:48
Hct 25.1 % (37.0-47.0) L 03/07/24 05:48
Plt Count 127 10^3/uL (130-400) L 03/07/24 05:48
Sodium 133 mmol/L (135-145) L 03/07/24 05:48
Potassium 3.6 mmol/L (3.5-5.1) D 03/07/24 05:48
Chloride 95 mmol/L (98-107) L 03/07/24 05:48
Carbon Dioxide 31 mmol/L (22-30) H 03/07/24 05:48
BUN 46 mg/dl (7-17) H 03/07/24 05:48
Creatinine 3.1 mg/dL (0.6-1.0) H 03/07/24 05:48
eGFR 17.12 03/07/24 05:48
Glucose 89 mg/dl (70-99) 03/07/24 05:48
Calcium 8.8 mg/dl (8.4-10.2) 03/07/24 05:48
Olm-P-Lmxxyuccuyp Pept > 68371 pg/ml 03/04/24 10:59
Albumin 3.0 g/dl (3.5-5.0) L 03/07/24 05:48
Physical Exam
-
Vital Signs:
Vital Signs
Temp Pulse Resp BP Pulse Ox
97.9 F 77 18 116/71 92
03/07/24 07:05 03/07/24 10:05 03/07/24 07:05 03/07/24 10:05 03/07/24 07:05
Cardiovascular:: Regular rate and rhythm
Respiratory:: Bilateral: Coarse
Lung Excursion:: Normal
Abdomen:: Nontender and Soft
Bowel Sounds:: Normal
Extremity Edema:: None: Bilateral:
Victoria Catheter: No
[2024-03-07 16:09] VITALS: PULSE 78; O2SAT 97
[2024-03-07 17:43] VITALS: BP 114/78
[2024-03-07] MEDS: SENSIPAR 60 MG PO (17:43)
[2024-03-07] MEDS: MAXIPIME 1000 MG IV (17:48)
[2024-03-07] MEDS: STERILE WATER FOR INJECTION 10 ML IV (17:48)
[2024-03-07] MEDS: SEROQUEL 400 MG PO (22:39)
[2024-03-07] MEDS: ZOLOFT 100 MG PO (22:40)
[2024-03-07] MEDS: NORVASC 10 MG PO (22:40)
[2024-03-07 23:31] VITALS: BP 140/78
[2024-03-08 04:32] VITALS: BMI 20.4
[2024-03-08] MEDS: TYLENOL 650 MG PO ×5 (04:46→20:57)
[2024-03-08 05:36] VITALS: BMI 21.0
[2024-03-08 06:00] VITALS: BMI 21.0
[2024-03-08 07:04] LABS: Blood Urea Nitrogen 62 mg/dl (7-17); Calcium 8.9 mg/dl (8.4-10.2); Carbon Dioxide 26 mmol/L (22-30); Chloride 90 mmol/L (98-107); Estimated Creatinine Clearance 12 ml/min; Glucose 86 mg/dl (70-99); Potassium 3.7 mmol/L (3.5-5.1); Sodium 127 mmol/L (135-145); eGFR 11.24
[2024-03-08] MEDS: RENVELA PO (07:39)
[2024-03-08] MEDS: APRESOLINE PO (07:39)
[2024-03-08] MEDS: COREG PO (07:39)
[2024-03-08] MEDS: LASIX PO (07:40)
--- NOTE | 2024-03-08 08:06 | W.PN.NEPH.HD ---
Assessment
-
Patient seen on HD
sbp stable at curren u/f
Progress Note - Hemodialysis
-
Date of Service: March 08, 2024
Duration: 30 minutes and 3 hours
Potassium Bath: 3
Calcium Bath: 2.5
Opti-Dialyzer: 160
Ultrafiltration: Other (2kg)
Blood Flow: 400
Heparin: 500 times one
EPO: 8K
--- NOTE | 2024-03-08 08:30 | W.PN.HOSP.TC ---
Today's Communication/Plan
-
Overall improved however
Still cannot explain E. coli in the blood that is now cleared for a second blood culture however has abdominal discomfort
Will obtain CT scan of the abdomen to further assess
Assessment / Plan
Assessment / Plan
53-year-old female on long-term dialysis since August with an AV fistula in her left brachialis who over the weekend developed increasing fatigue and lethargy but especially noted this morning and also had nausea and vomiting increasing shortness
of breath and she was too ill today to leave her scheduled dialysis that she gets Monday she has been diagnosed with end-stage renal disease since August of this past year but had described increasing fatigue over the weekend has
not felt right ever since she started dialysis. She also related a little bit of blood in her sputum this morning. She is not aware of a febrile course but presented with a fever of 103 here. She remains significantly hypoxic and is presently on
a BiPAP mask with continued tachypnea. BP remains relatively stable at 150s over 90 and heart rate is 10 5-1 10 she does relate chronic lower extremity edema with the right leg being out of proportion to the left as far as edema is concerned. She
received an empiric course of vancomycin and cefepime here in the emergency room/rest of his history is rather sketchy even from patient's mother at bedside who did supply a full list of her medications and the patient apparently has schizophrenia
is on Seroquel also restless legs and is treated for hypertensive urgency in the past.
Her most recent echocardiogram was in 2021 at that time an EF of 55 to 60% was noted with a normal RV and function trace mitral regurg and tricuspid regurg was noted no significant change in 2018.
-She is able to states she was born with 1 kidney but could not relate how she entered into end-stage renal disease in the necessity for hemodialysis. She is not diabetic. She does not relate a history of breast cancer. And she does have have
hyperlipidemia with prior surgeries including lumbar surgery
Sepsis present on admission with hypoxic respiratory failure
-Febrile illness/blood cultures initially positive/GNR/E. coli/turned out to be pansensitive/second set of blood cultures remain negative x 24 hours
-Presumed source is pneumonic infiltrate seen on chest x-ray/unable to explain E. coli in the blood/in with her vague abdominal pain
-I will obtain an abdominal CT scan to further image
-Treat as community-acquired pneumonia
-COVID and influenza negative
-Significant hypoxic on presentation could not tolerate BiPAP/remains on high flow oxygen which appears to could be transition to mid flow today
-Got empiric dosage of cefepime vancomycin/discontinue vancomycin with negative MRSA screen
-Continue on Decadron IV and nebulization/not sure at this point is a requirement for continued IV steroids
-proBNP and troponins pending
-May have an element of fluid overload heart failure
-Reviewed most recent 2D echocardiogram from 2021 which was within normal limits
-Await blood culture results
-Pulmonary otolaryngology surgeon consultation
End-stage renal disease
-Some element of fluid overload/
Ultra filtration removal of 2.5 kg yesterday
-Bilateral venous Dopplers of both lower extremities negative for DVT
-Secondary hyperparathyroidism and hyperphosphatemia
-Continue Cinacalcet/Lokelma/Renvela
= On usual Monday schedule
Troponin elevation felt to be of nonischemic non-NC origin
-Trending down and will be chronically elevated in the setting of ESRD
Essential hypertension
-Continue carvedilol twice daily
-Amlodipine?(Contributing to chronic leg edema)?/But improved after ultrafiltration removal yesterday
-Hydralazine 50 3 times daily
Schizophrenia
-Continue quetiapine
-Sertraline 100 nightly
Restless leg syndrome
-Underlying neuropathy
-Continue gabapentin
-Continue pramipexole
DVT prophylaxis with heparin/avoid compression devices with peripheral edema
-Full CODE STATUS
Anticipated Discharge: Within 24 hours
Subjective/Interval History
-
Date of Service: March 08, 2024
Relates that she may have had a coughing spell with some blood in it also complaining of right upper quadrant abdominal pain she is now off oxygen and receiving dialysis scheduled
Objective Data
-
Labs:
Laboratory Results
03/08/24
05:21
Sodium 127 L
Potassium 3.7
Chloride 90 L
Carbon Dioxide 26
BUN 62 H
Creatinine 4.4 H*
Glucose 86
Calcium 8.9
Vital Signs:
Vital Signs
Temp Pulse Resp BP Pulse Ox
99.4 F 87 20 140/78 92
03/07/24 23:31 03/07/24 23:31 03/07/24 23:31 03/07/24 23:31 03/07/24 23:31
I&O
03/07/24 03/08/24 03/09/24
06:59 06:59 06:59
Intake Total 980 / 980 1680 / 1680
Balance 980 / 980 1680 / 1680
Review of Systems
-
All other systems: Not reviewed unless documented (Up to both reliable or best historian)
Constitutional: Reports Weakness
Respiratory: Reports Cough and Hemoptysis
Abdomen/GI: Reports Abdominal Pain and Nausea
Physical Exam
-
General: Well Developed
HEENT: Normocephalic
Respiratory: Rhonchi (rt side)
Cardiac: Regular Rhythm
GI: Soft and Tender (rt side)
Genito-urinary: No Costovertebral Tender
Skin: Warm
Neuro: Awake and Alert
Psych: Calm
Data Reviewed
-
Total Time Spent with Patient (in minutes): 56
[2024-03-08] MEDS: RETACRIT 8000 UNITS IV (08:47)
--- NOTE | 2024-03-08 08:50 | W.PN.PUL3 ---
Today's Communication / Plan
-
Follow-up surveillance blood cultures - NGTD
Continue HD per nephrology
Maintain SpO2 >90%
Ambulatory pulse ox prior to discharge
Monitor hemoptysis
Continue tessalon Perles
PT/OT
Pulmonary service will continue to briefly follow along
Assessment
-
Assessment:
Ms Maryanne Barroso is a 53/W adm 03-04 with 2 d h/o worsening fatigue, lethargy, n/v and dyspnea (could not go for regular HD on DOA due to symptoms). Reported mild hemoptysis on morning of adm. At ER, febrile at 103F, hypoxic, BP 150/90, mild
tachycardia, reportedly no change in R>L SHOBHA edema. Started on BPAP, vancomycin/cefepime, CXR with basilar infiltrate
Impression:
R basilar infiltrate/LLL CAP
Fever
[id number] hemoptysis, pinkish frothy sputum
E. coli bacteriemia (tatum-sensitive)
Pulmonary vascular congestion
Leukocytosis
Elevated BNP
COVID/flu negative
Abdominal pain
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
CKD, on HD MWF since Aug 2023, LUE AVF
Secondary hyperparathyroidism
Solitary kidney
Mild MR, small PFO on TTE Jul 2023
Anxiety
Depression
Schizophrenia
L spine surgery
RLS
Smoker
Plan:
Was initially admitted to ICU for resp distress, fever and hemoptysis
R basilar infiltrate
Mild hemoptysis of pinkish frothy sputum, witnessed: compounded by HF state (pulm vasc congestion on CXR, last HD 03-01) and platelet dysfunction secondary to CKD
Continue O2 protocol
Did not tolerate BPAP in ER, started on HFNC --> weaned down to room air where she has been for the last 24-36 hours
Maintain SpO2 >90-94%
Check walking pulse ox prior to discharge to assess for home O2
Sputum cx negative
Blood cxs E. coli x2
Surveillance blood cultures to be repeated today
MRSA screening negative
Empiric atbs since adm: cefepime/vancomycin (vanco has been discontinued)
Abx now changed from cefepime to keflex
Reported wheezing WAITER/WAITRESS, started on IV MP at ER, likely component of acute bronchitis plus HF state --> patient no longer wheezing
Discontinued IV MP
prn DNs
Troponin peaked at 0.099 on 03/04. No longer need to trend
SHOBHA doppler negative
Continue HD as per nephrology
Renal following
Continue a-HTN regimen, including diuretic
Continue sc hep
OOB as tolerated
PT/OT
Pulmonary service will continue to follow along.
Total time spent today was 35 minutes for this encounter. Time includes reviewing laboratory test/imaging results, reviewing pertinent medical records, obtaining and reviewing medical history, performing an appropriate exam, ordering medications,
tests and procedures. Time also includes documentation of this encounter, coordinating patient care and communicating with other healthcare professionals. Total time does not include separately billed tests performed on this date of service.
Subjective Data
-
Date of Service:
Date of Service: March 08, 2024
Chief Complaint: Pulmonary Follow Up
Subjective:
Patient seen today. Coughing up blood earlier this morning. She still feels short of breath with exertion as well. No acute events reported from overnight otherwise. She currently denies headache, nausea, diarrhea, fevers or chills. Had some
RUQ abdominal pain this morning.
Review of Systems
General: Other (Negative unless mentioned above)
Objective Data
Data Reviewed
Vital Signs / I&O / Oxygen:
Vital Signs
Temp Pulse Resp BP Pulse Ox
99.4 F 87 20 140/78 92
03/07/24 23:31 03/07/24 23:31 03/07/24 23:31 03/07/24 23:31 03/07/24 23:31
Intake and Output
03/07/24 03/08/24 03/09/24
06:59 06:59 06:59
Intake Total 980 / 980 0 / 1680
Balance 980 / 980 1680 / 1680
SaO2 92
Nasal Cannula flow liters per 1
minute
Physical Exam
General: Respiratory Distress (Negative) and Comfortable
HEENT: Normocephalic and Anicteric
Cardiovascular: S1-S2 and Peripheral Edema (+1 lower extremity edema)
Respiratory: Clear, Wheeze (Negative), Crackles (Negative), Rhonchi (Negative), Non-Labored Respirations and Other (Reduced breath sounds at the bases)
GI: Soft, Non Distended, Non Tender and Normal Bowel Sounds
Neurology: Awake and Alert
Skin: Warm and Dry
Labs/Micro/Reports
Lab Data
03/07/24 05:48
03/08/24 05:21
Microbiology
03/06/24 08:37 Blood/Venous Blood Culture - Preliminary
No Growth in 48 hours- Final report to follow
03/06/24 08:08 Blood/Venous Blood Culture - Preliminary
No Growth in 48 hours- Final report to follow
03/04/24 15:50 Sputum Respiratory Culture - Final
Usual Respiratory Peri
03/04/24 15:50 Sputum Gram Stain - Final
03/04/24 10:59 Blood/Venous Blood Culture - Final
Escherichia coli
03/04/24 10:59 Blood/Venous Gram Stain - Final
03/04/24 10:52 Blood/Venous Blood Culture - Final
Escherichia coli
03/04/24 10:52 Blood/Venous Gram Stain - Final
[2024-03-08] MEDS: REQUIP 0.5 MG PO ×2 (09:20→20:54)
[2024-03-08] MEDS: TESSALON PERLES 200 MG PO ×3 (09:20→21:56)
[2024-03-08] MEDS: NEURONTIN 100 MG PO ×3 (09:21→21:57)
[2024-03-08] MEDS: HEPARIN 5000 UNITS SC ×2 (09:21→20:55)
[2024-03-08] MEDS: CRESTOR 10 MG PO (09:21)
[2024-03-08] MEDS: MIRAPEX 0.125 MG PO ×3 (09:21→21:59)
[2024-03-08] MEDS: LOKELMA PO (09:28)
[2024-03-08 11:06] VITALS: BMI 21.0
[2024-03-08] MEDS: KEFLEX 500 MG PO ×2 (12:26→20:55)
[2024-03-08] MEDS: RENVELA 800 MG PO ×2 (12:26→17:31)
[2024-03-08] MEDS: OMNIPAQUE 50 ML PO (13:31)
--- NOTE | 2024-03-08 14:27 | CM ---
Patient experiencing abdominal pain. CT of abdomen ordered. On RA with 92% PO2. Will need O2 walk test on day of discharge.
--- NOTE | 2024-03-08 15:28 | PTCARENOTE ---
Sister Neeru [phone] called an updated on care.
[2024-03-08] MEDS: APRESOLINE 50 MG PO ×2 (17:30→21:56)
[2024-03-08] MEDS: SENSIPAR 60 MG PO (17:31)
[2024-03-08] MEDS: STERILE WATER FOR INJECTION IV (17:31)
[2024-03-08] MEDS: COREG 25 MG PO (20:57)
[2024-03-08] MEDS: SEROQUEL 400 MG PO (21:57)
[2024-03-08] MEDS: NORVASC 10 MG PO (21:57)
[2024-03-08] MEDS: ZOLOFT 100 MG PO (21:57)
--- NOTE | 2024-03-08 23:00 | PTCARENOTE ---
Pt's sister (Neeru) called the unit requesting an update on pt's Abd Ct done today and d/c plan. Was made aware that this nurse could not discuss results, instructed to come in to discuss results and d/c concerns with hospitalist. Pt's sister
requesting to be called by hospitalist in AM, if unable to come in.
[2024-03-08 23:01] VITALS: BP 126/74
[2024-03-09] MEDS: TYLENOL PO ×3 (01:12→16:51)
[2024-03-09 06:00] VITALS: BMI 20.6
[2024-03-09 07:00] VITALS: BP 140/88
[2024-03-09 07:05] LABS: Hematocrit 28.1 % (37.0-47.0); Hemoglobin 9.7 g/dL (12.0-16.0); Mean Corp Hgb Conc. 34.5 g/dL (33.0-37.0); Mean Corpuscular Hgb 31.7 pg (27.0-31.0); Mean Corpuscular Volume 91.8 fL (81.0-99.0); Mean Platelet Volume 10.9 fL (7.4-10.4); Platelet Count 180 10^3/uL (130-400); Red Blood Cell Count 3.06 10^6/uL (4.20-5.40); Red Cell Dist. Width 16.9 % (11.5-14.5); White Blood Cell Count 12.7 10^3/uL (4.8-10.8)
[2024-03-09 07:30] LABS: ALT (SGPT) 20 U/L (0-35); AST (SGOT) 24 U/L (14-36); Albumin 3.2 g/dl (3.5-5.0); Alkaline Phosphatase 227 U/L (38-126); Blood Urea Nitrogen 34 mg/dl (7-17); Calcium 9.1 mg/dl (8.4-10.2); Carbon Dioxide 30 mmol/L (22-30); Chloride 91 mmol/L (98-107); Estimated Creatinine Clearance 17 ml/min; Glucose 99 mg/dl (70-99); Potassium 4.1 mmol/L (3.5-5.1); Sodium 129 mmol/L (135-145); Total Protein 6.4 g/dl (6.3-8.2); eGFR 15.88
--- NOTE | 2024-03-09 08:33 | W.PN.HOSP.TC ---
Today's Communication/Plan
-
Continue present course of antibiotics for E. coli bacteremia
Further workup of pancreatic mass with MRI and GI consultation
Does not appear now to be in need of oxygen on home care
Continues to have some hemoptysis
Assessment / Plan
Assessment / Plan
53-year-old female on long-term dialysis since August with an AV fistula in her left brachialis who over the weekend developed increasing fatigue and lethargy but especially noted this morning and also had nausea and vomiting increasing shortness
of breath and she was too ill today to leave her scheduled dialysis that she gets Monday she has been diagnosed with end-stage renal disease since August of this past year but had described increasing fatigue over the weekend has
not felt right ever since she started dialysis. She also related a little bit of blood in her sputum this morning. She is not aware of a febrile course but presented with a fever of 103 here. She remains significantly hypoxic and is presently on
a BiPAP mask with continued tachypnea. BP remains relatively stable at 150s over 90 and heart rate is 10 5-1 10 she does relate chronic lower extremity edema with the right leg being out of proportion to the left as far as edema is concerned. She
received an empiric course of vancomycin and cefepime here in the emergency room/rest of his history is rather sketchy even from patient's mother at bedside who did supply a full list of her medications and the patient apparently has schizophrenia
is on Seroquel also restless legs and is treated for hypertensive urgency in the past.
Her most recent echocardiogram was in 2021 at that time an EF of 55 to 60% was noted with a normal RV and function trace mitral regurg and tricuspid regurg was noted no significant change in 2018.
-She is able to states she was born with 1 kidney but could not relate how she entered into end-stage renal disease in the necessity for hemodialysis. She is not diabetic. She does not relate a history of breast cancer. And she does have have
hyperlipidemia with prior surgeries including lumbar surgery
Sepsis present on admission with hypoxic respiratory failure
-Febrile illness/blood cultures initially positive/GNR/E. coli/turned out to be pansensitive/second set of blood cultures remain negative x 24 hours
-Presumed source is pneumonic infiltrate seen on chest x-ray/unable to explain E. coli in the blood/in with her vague abdominal pain
-I will obtain an abdominal CT scan to further image
-Treat as community-acquired pneumonia
-COVID and influenza negative
-Significant hypoxic on presentation could not tolerate BiPAP/remains on high flow oxygen which appears to could be transition to mid flow today
-Got empiric dosage of cefepime vancomycin/discontinue vancomycin with negative MRSA screen
-Continue on Decadron IV and nebulization/not sure at this point is a requirement for continued IV steroids
-proBNP and troponins pending
-May have an element of fluid overload heart failure
-Reviewed most recent 2D echocardiogram from 2021 which was within normal limits
-Follow-up blood culture results have remained no growth
-Pulmonary court monitor consultation
E. coli bacteremia
-With no obvious source as urinalysis showed no signs of infection
-And no obvious GI source obtained a CT scan of the abdomen :Nonspecific low-attenuation lesion abutting the posterior margin of the proximal pancreas measuring 17 x 14 x 12 mm. No gross dilatation of pancreatic duct or distal pancreatic atrophy.
-Given this presentation her intermittent abdominal pain will obtain MRI and GI consultation
End-stage renal disease
-Some element of fluid overload/
Ultra filtration removal of 2.5 kg yesterday
-Bilateral venous Dopplers of both lower extremities negative for DVT
-Secondary hyperparathyroidism and hyperphosphatemia
-Continue Cinacalcet/Lokelma/Renvela
= On usual Monday schedule
Troponin elevation felt to be of nonischemic non-LA origin
-Trending down and will be chronically elevated in the setting of ESRD
Essential hypertension
-Continue carvedilol twice daily
-Amlodipine?(Contributing to chronic leg edema)?/But improved after ultrafiltration removal yesterday
-Hydralazine 50 3 times daily
Schizophrenia
-Continue quetiapine
-Sertraline 100 nightly
Restless leg syndrome
-Underlying neuropathy
-Continue gabapentin
-Continue pramipexole
DVT prophylaxis with heparin/avoid compression devices with peripheral edema
-Full CODE STATUS
Anticipated Discharge: 24 - 48 hours
Subjective/Interval History
-
Date of Service: March 09, 2024
No further significant abdominal pain at least refer this morning like yesterday still coughing up some blood-streaked sputum. No nausea. Went over results of CT scan and the need for further imaging and GI consultation.
Objective Data
-
Labs:
Laboratory Results
03/09/24
06:38
WBC 12.7 H
Hgb 9.7 L
Hct 28.1 L
Plt Count 180 D
Sodium 129 L
Potassium 4.1
Chloride 91 L
Carbon Dioxide 30
BUN 34 H
Creatinine 3.3 H
Glucose 99
Calcium 9.1
Total Bilirubin 1.0
AST 24
ALT 20
Alkaline Phosphatase 227 H
Vital Signs:
Vital Signs
Temp Pulse Resp BP Pulse Ox
99.9 F 86 18 126/74 93
03/08/24 23:01 03/08/24 23:01 03/08/24 23:01 03/08/24 23:01 03/08/24 23:01
I&O
03/08/24 03/09/24 03/10/24
06:59 06:59 06:59
Intake Total 1680 / 1680 880 / 880
Balance 1680 / 1680 880 / 880
Review of Systems
-
History Source: Patient and Family
Respiratory: Reports Hemoptysis
Abdomen/GI: Reports Abdominal Pain and Nausea
Physical Exam
-
General: No Apparent Distress
Respiratory: Rhonchi (improved)
Cardiac: Regular Rhythm
GI: Soft and Nondistended
Neuro: Awake, Alert, Oriented and AO x 3
Data Reviewed
-
Total Time Spent with Patient (in minutes): 56
Diagnostic Radiology: Report Reviewed by me (CT scan results show a posterior pancreatic mass)
Labs: Labs Reviewed by me (Leukocytosis trending down again)
[2024-03-09] MEDS: MIRAPEX 0.125 MG PO ×3 (08:51→22:48)
[2024-03-09] MEDS: REQUIP 0.5 MG PO ×2 (08:51→19:55)
[2024-03-09] MEDS: LASIX 80 MG PO (08:51)
[2024-03-09] MEDS: APRESOLINE 50 MG PO ×3 (08:51→22:49)
[2024-03-09] MEDS: CRESTOR 10 MG PO (08:51)
[2024-03-09] MEDS: RENVELA 800 MG PO ×3 (08:51→15:23)
[2024-03-09] MEDS: NEURONTIN 100 MG PO ×3 (08:52→22:49)
[2024-03-09] MEDS: TYLENOL 650 MG PO ×3 (08:52→19:56)
[2024-03-09] MEDS: TESSALON PERLES 200 MG PO ×2 (08:52→15:23)
[2024-03-09] MEDS: HEPARIN 5000 UNITS SC ×2 (08:52→19:55)
[2024-03-09] MEDS: KEFLEX 500 MG PO ×2 (08:52→19:55)
[2024-03-09] MEDS: COREG 25 MG PO ×2 (08:52→19:55)
--- NOTE | 2024-03-09 09:21 | W.PN.NEPH.PH ---
Today's Communication / Plan
-
Next dialysis Monday
Assessment/Plan
-
Impression:
RLL PNA (Fevers, Hemoptysis)/Hypoxia
GNR bacteremia
End-stage renal disease Monday at [facility]
Hypertension
Secondary hyperparathyroidism
Solitary kidney
Hyperphosphatemia
Anxiety depression
Dyslipidemia
History of extremity involuntary movements
Delusional hyponatremia
Chronic Hyperkalemia
Left upper extremity AV fistula
Plan:
Next HD on Monday
Currently on Keflex Re: Gram-negative justyn bacteremia
Maintain current oral antihypertensives in setting of htn (has been normotensive while here)
Maintain Cinacalcet for secondary hyperparathyroid
Maintain sevelamer with meals Re: Hyperphosphatemia
Maintain Lokelma for hyperkalemia
Fluid restriction of 1500 cc daily for ESRD and hyponatremia
For abdominal ultrasound re: pancreatic mass noted on
-
-
Date of Service: March 09, 2024
CC / HPI / ROS
-
Chief Complaint:
End-stage renal disease
History of Present Illness:
End-stage renal disease on Monday schedule
Hemodynamically stable
Remains on Keflex in setting of gram negative bacteremia
Review of Systems:
Off oxygen
No chest
Low-grade fever
Left upper extremity AV fistula
Labs
-
Labs:
WBC 12.7 10^3/uL (4.8-10.8) H 03/09/24 06:38
RBC 3.06 10^6/uL (4.20-5.40) L 03/09/24 06:38
Hgb 9.7 g/dL (12.0-16.0) L 03/09/24 06:38
Hct 28.1 % (37.0-47.0) L 03/09/24 06:38
Plt Count 180 10^3/uL (130-400) D 03/09/24 06:38
Sodium 129 mmol/L (135-145) L 03/09/24 06:38
Potassium 4.1 mmol/L (3.5-5.1) 03/09/24 06:38
Chloride 91 mmol/L (98-107) L 03/09/24 06:38
Carbon Dioxide 30 mmol/L (22-30) 03/09/24 06:38
BUN 34 mg/dl (7-17) H 03/09/24 06:38
Creatinine 3.3 mg/dL (0.6-1.0) H 03/09/24 06:38
eGFR 15.88 03/09/24 06:38
Glucose 99 mg/dl (70-99) 03/09/24 06:38
Calcium 9.1 mg/dl (8.4-10.2) 03/09/24 06:38
Ptn-C-Veldbcjxmll Pept > 65198 pg/ml 03/04/24 10:59
Albumin 3.2 g/dl (3.5-5.0) L 03/09/24 06:38
Physical Exam
-
Vital Signs:
Vital Signs
Temp Pulse Resp BP Pulse Ox
99.1 F 91 18 140/88 90
03/09/24 07:00 03/09/24 08:51 03/09/24 07:00 03/09/24 08:51 03/09/24 07:00
Cardiovascular:: Regular rate and rhythm
Respiratory:: Bilateral: Coarse
Lung Excursion:: Normal
Abdomen:: Nontender and Soft
Bowel Sounds:: Normal
Extremity Edema:: +1: Bilateral:
Victoria Catheter: No
--- NOTE | 2024-03-09 10:11 | CON.GI ---
Addendum entered and electronically signed by Keshia Fierro MD 03/09/24 12:18:
I saw and examined the patient.
The BURNER HAND's note was reviewed and I agree with the note.
Comment: This is a 53-year-old female who has past medical history as listed below who presented on 03/04 with fever, cough and shortness of breath and has since been diagnosed with right lower lobe pneumonia and has been on antibiotics. She also
has E. coli bacteremia from blood cultures on 03/04 and repeat blood cultures are negative. No evidence of UTI was noted. On CT without contrast she was also noted to have a pancreatic lesion with no PD dilatation and her LFTs are pretty
unremarkable other than elevated alkaline phosphatase level. She also has right upper quadrant pain and occasional nausea.
Assessment and plan
1. RLL pneumonia and bacteremia treatment per primary team on antibiotics.
2. pancreatic lesion noted probable pancreatic cyst/ IPMN no PD dilatation will get CT with IV contrast and based on that may need MRI with MRCP versus EUS and CA 19-9
3. Right upper quadrant pain with nausea most likely related to pneumonia
Original Note:
Consultation
-
Date/Time Consultation Requested: 03/08/24 1634
Date/Time Consultation Performed: 03/09/24 1011
Requesting Provider: Dr. Maxwell
Performing Provider: Dr. Urena/JULIUS Muhammad
Reason for Consultation: pancreatic mass, e coli bacteremia
Medical History
Chief Complaint / HPI
Chief Complaint: fatigue/lethargy
History of Present Illness:
53-year-old female with past medical history of breast cancer, hypertension, hyperlipidemia, end-stage renal disease on hemodialysis Monday, mitral regurgitation with small PFO, schizophrenia, RLS and solitary kidney who presents to
the emergency room on 03/04/2024 with fatigue, shortness of breath, nausea, and hemoptysis. She felt too unwell to have her scheduled dialysis. Upon arrival in the emergency room she was febrile up to 103.0 Fahrenheit, hypoxic requiring BiPAP and
tachypnea, lower extremity edema. She was given importer course of vancomycin and cefepime in the emergency room. She was found to have a right lower lobe pneumonia as well as E. coli bacteremia. The patient was maintained on high flow nasal
cannula. Vancomycin was DC'd and she was maintained on cefepime. The patient was eventually weaned down to room air. Patient's blood cultures cleared however she had abdominal discomfort on 03/08/2024. A CT of the abdomen without IV contrast but
with oral contrast was obtained that showed hepatomegaly with trace perihepatic ascites. Right lower lobe consolidation suspicious for pneumonia. Trace right pleural effusion. Gallbladder within normal limits. Bile ducts within normal limits.
Pancreas nonspecific low-attenuation lesion along the posterior margin of the proximal pancreatic body measuring 17 x 14 x 21 mm. Not present on prior MRI from 06/28/2007. Patient is still on cephalexin at this time. White count has increased from
10.6 on 03/07/2020 4-12.7 today. Patient Tmax overnight was 99.9. We are asked to evaluate for pancreatic lesion, abdominal discomfort in the setting of E. coli bacteremia. The patient states that ever since she started dialysis she has been
having intermittent nausea mostly associated prior to her HD sessions. The patient states that she has been having an ongoing cough for a while now. She states that sometimes she would see streaks of blood within her sputum. She states that
yesterday she started to develop a right upper quadrant/right chest discomfort associated with coughing only. She has no difficulty eating meals. She has no tenderness upon palpation. She states she has not had a bowel movement since being
hospitalized. The patient states that she used to drink alcohol a very large can of beer approximately 3 times a week. She stopped this when she started dialysis. The patient denies any chills, vomiting, melena, hematochezia, dysphagia or
odynophasia. She denies any early satiety or unintentional weight loss. The patient denies any history of gastroesophageal reflux.
Past Medical History
Past Surgical History: Gynecological (hysterectomy) and Other (wisdom teeth, left breast lumpectomy)
Social History
Tobacco: Non-Smoker
Alcohol: Former (Used to drink 3 very large beers a week)
Drug: None
Personal: Single
Family History
Family History: Other (No family history of gastrointestinal malignancy or IBD)
Allergies / Home Medications
Allergy/AdvReac Type Severity Reaction Status Date / Time
No Known Allergies Allergy Unverified 03/04/24 10:48
�Medication �Instructions �Recorded
amlodipine 10 mg tablet (Norvasc) 10 mg PO HS Blood Pressure 12/22/08
carvedilol 25 mg tablet (Coreg) 25 mg PO BID Blood Pressure 03/04/24
cinacalcet 30 mg tablet 60 mg PO QPM Kidney Disease 03/04/24
furosemide 80 mg tablet (Lasix) 80 mg PO DAILY Fluid 03/04/24
Retention/Swelling
gabapentin 100 mg capsule 100 mg PO TID pain 03/04/24
hydralazine 25 mg tablet 50 mg PO TID Blood Pressure 03/04/24
pramipexole 0.125 mg tablet 0.125 mg PO TID Neurological 03/04/24
Condition
quetiapine 400 mg tablet (Seroquel) 400 mg PO HS Mental Health/Anxiety 03/04/24
ropinirole 0.5 mg tablet 0.5 mg PO BID Neurological 03/04/24
Condition
rosuvastatin 10 mg tablet (Crestor) 10 mg PO DAILY High Cholesterol 03/04/24
sertraline 100 mg tablet 100 mg PO HS depression 03/04/24
sevelamer carbonate 800 mg tablet 800 mg PO AC Kidney Disease 03/04/24
(Renvela)
sodium zirconium cyclosilicate 10 10 g PO MOWEFR high potassium 03/04/24
gram oral powder packet (Lokelma) levels
Review of Systems
-
All other systems: A 12 pt ROS was Negative except as stated above in HPI
Vital Signs
Temp Pulse Resp BP Pulse Ox
99.1 F 91 18 140/88 90
03/09/24 07:00 03/09/24 08:51 03/09/24 07:00 03/09/24 08:51 03/09/24 07:00
Physical Exam
Exam
General: Other (Appears older than stated age)
HEENT: Anicteric and Other (Tardive dyskinesia like facial movements)
Respiratory: Wheezes (Bilateral wheezes throughout/expiratory) and Rhonchi
Cardiac: Regular Rhythm
GI: Soft, Non Tender, Non Distended, Normal Bowel Sounds and Other (Protuberant)
Neuro: AO x 3
Psych: Calm
Results
WBC 12.7 10^3/uL (4.8-10.8) H 03/09/24 06:38
Hgb 9.7 g/dL (12.0-16.0) L 03/09/24 06:38
Hct 28.1 % (37.0-47.0) L 03/09/24 06:38
MCV 91.8 fL (81.0-99.0) 03/09/24 06:38
Plt Count 180 10^3/uL (130-400) D 03/09/24 06:38
Absolute Neuts (auto) 9.3 10^3/uL (1.4-6.5) H 03/07/24 05:48
PT 16.8 Sec (11.4-14.6) H 03/04/24 10:52
INR 1.39 03/04/24 10:52
APTT 33.0 Sec (23.4-35.0) 03/04/24 10:52
Sodium 129 mmol/L (135-145) L 03/09/24 06:38
Potassium 4.1 mmol/L (3.5-5.1) 03/09/24 06:38
Chloride 91 mmol/L (98-107) L 03/09/24 06:38
Carbon Dioxide 30 mmol/L (22-30) 03/09/24 06:38
BUN 34 mg/dl (7-17) H 03/09/24 06:38
Creatinine 3.3 mg/dL (0.6-1.0) H 03/09/24 06:38
Calcium 9.1 mg/dl (8.4-10.2) 03/09/24 06:38
Total Bilirubin 1.0 mg/dl (0.2-1.3) 03/09/24 06:38
AST 24 U/L (14-36) 03/09/24 06:38
ALT 20 U/L (0-35) 03/09/24 06:38
Alkaline Phosphatase 227 U/L (38-126) H 03/09/24 06:38
Diagnostic Image Results:
CT abdomen with oral contrast 03/08/2024:
IMPRESSION:
1. Dense airspace consolidation within the right lower lobe compatible with lobar pneumonia. Small right parapneumonic effusion. There is also some airspace consolidation within the posterior left lower lobe also suspicious for pneumonia.
2. Hepatomegaly with trace perihepatic ascites.
3. Atrophic/dysmorphic configuration of the left kidney. Agenesis of the right kidney.
4. Nonspecific low-attenuation lesion abutting the posterior margin of the proximal pancreas measuring 17 x 14 x 12 mm. No gross dilatation of pancreatic duct or distal pancreatic atrophy. Consider further evaluation with contrast-enhanced CT or
MRI.
5. Increased sclerosis of the vertebral bodies suspicious for renal osteodystrophy.
6. Additional findings above.
Prior GI Procedures:
EGD: Never had
Colonoscopy: 05/02/2018 ([facility]) The perianal and digital rectal examinations were normal.
The transverse colon was significantly tortuous. Advancing the scope
required applying abdominal pressure.
Colonoscopy planned with Dr. East 02/21/2024 but cancelled and rescheduled for Rm 5/6 secondary to respiratory issues.
Assessment / Plan
-
53-year-old female with past medical history of breast cancer, hypertension, hyperlipidemia, end-stage renal disease on hemodialysis Monday, mitral regurgitation with small PFO, schizophrenia, RLS and solitary kidney who presents to
the emergency room on 03/04/2024 with fatigue, shortness of breath, nausea, and hemoptysis. She was found to have right lower lobe pneumonia with E. coli bacteremia. She was treated with ceftriaxone and transition to oral cephalexin at this time.
Asked to evaluate for right upper quadrant/right sided pain associated with coughing. CT of the abdomen with oral contrast also shows nonspecific low-attenuation lesion abutting the posterior margin of the proximal pancreas measuring 17 x 14 x 12
mm. Patient without any pain with eating. She has nausea associated prior to HD and during HD. She is currently constipated and has not had a bowel movement during her hospitalization. WBC 12.7, hemoglobin 9.7, hematocrit 28.1, platelets 180,
sodium 129, potassium 4.1, chloride 91, CO2 30, BUN 34, creatinine 3.3, glucose 99, total bilirubin 1.0, AST 24, ALT 20, alk phos 227.
Impression:
Nonspecific low-attenuation lesion abutting the posterior margin of the proximal pancreas (17 x 14 x 12 mm)
Right-sided discomfort with coughing in the setting of right lower lobe pneumonia
Constipation
Right lower lobe pneumonia
E. coli bacteremia, second set blood cultures negative
End-stage renal disease on HD Monday
Elevated alk phos
Plan:
-CT of the abdomen/pelvis with oral and IV contrast-> discussed with Dr. Pham, will plan for tomorrow and HD planned for Monday.
-Check GGT
-MiraLAX daily
-If with increasing white count or fevers would recommend ID consultation
-Further recommendations to be forthcoming
Data Reviewed
-
Radiology: Report Reviewed by me
-
-
Thank you for consultation and allowing me to participate in the patient's care. Please call the middleware solutions architect GI physician during the after hours with any questions or concerns.
[2024-03-09 15:00] VITALS: BP 129/76
[2024-03-09] MEDS: SENSIPAR 60 MG PO (16:51)
[2024-03-09] MEDS: STERILE WATER FOR INJECTION IV (16:52)
--- NOTE | 2024-03-09 17:38 | W.PN.PUL3 ---
Today's Communication / Plan
-
atb
CT abd
Assessment
-
Assessment:
Ms Maryanne Barroso is a 53/W adm 03-04 with 2 d h/o worsening fatigue, lethargy, n/v and dyspnea (could not go for regular HD on DOA due to symptoms). Reported mild hemoptysis on morning of adm. At ER, febrile at 103F, hypoxic, BP 150/90, mild
tachycardia, reportedly no change in R>L SHOBHA edema. Started on BPAP, vancomycin/cefepime, CXR with basilar infiltrate
Impression:
R basilar infiltrate/LLL CAP
Fever
Nly-yzyl-mwhqhjdkldc hemoptysis, pinkish frothy sputum
E. coli bacteriemia (tatum-sensitive)
Pulmonary vascular congestion
Leukocytosis
Elevated BNP
COVID/flu negative
Abdominal pain
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
CKD, on HD MWF since Aug 2023, LUE AVF
Secondary hyperparathyroidism
Solitary kidney
Mild MR, small PFO on TTE Jul 2023
Anxiety
Depression
Schizophrenia
L spine surgery
RLS
Smoker
Plan:
Was initially admitted to ICU for resp distress, fever and hemoptysis
R basilar infiltrate
Mild hemoptysis of pinkish frothy sputum, witnessed: compounded by HF state (pulm vasc congestion on CXR, last HD 03-01) and platelet dysfunction secondary to CKD
Did not tolerate BPAP in ER, started on HFNC --> weaned down to room air where she has been since 03-07
Remains resp ahn stable on RA at this juncture
Sputum cx negative
Blood cxs E. coli x2 03-04
Negative blood cxs 03-06
MRSA screening negative
Empiric atbs since adm: cefepime/vancomycin (vanco has been discontinued)
Abx now changed from cefepime to keflex since 03-08
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
Discontinued IV MP 03-05
prn DNs
Troponin peaked at 0.099 on 03/04. No longer need to trend
SHOBHA doppler negative
GI consulted 02-[address] abd s/c 03-08 with nonspecific low-attenuation lesion abutting the posterior margin of the proximal pancreas measuring 17 x 14 x 12 mm. No gross dilatation of pancreatic duct or distal pancreatic atrophy
For CT abd c IV contrast 03-10
Continue HD as per nephrology
Renal following
Continue a-HTN regimen, including diuretic
Continue sc hep
OOB as tolerated
PT/OT
Subjective Data
-
Date of Service:
Date of Service: March 09, 2024
Chief Complaint: Pulmonary Follow Up
Objective Data
Data Reviewed
Vital Signs / I&O / Oxygen:
Vital Signs
Temp Pulse Resp BP Pulse Ox
99.1 F 82 16 129/76 93
03/09/24 15:00 03/09/24 15:00 03/09/24 15:00 03/09/24 15:00 03/09/24 15:00
Intake and Output
03/08/24 03/09/24 03/10/24
06:59 06:59 06:59
Intake Total 1680 / 1680 880 / 880
Balance 1680 / 1680 880 / 880
SaO2 93
Nasal Cannula flow liters per 1
minute
Physical Exam
General: Respiratory Distress (Negative) and Comfortable
HEENT: Normocephalic and Anicteric
Cardiovascular: S1-S2 and Peripheral Edema (+1 lower extremity edema)
Respiratory: Clear, Wheeze (Negative), Crackles (Negative), Rhonchi (Negative), Non-Labored Respirations and Other (Reduced breath sounds at the bases)
GI: Soft, Non Distended, Non Tender and Normal Bowel Sounds
Neurology: Awake and Alert
Skin: Warm and Dry
Labs/Micro/Reports
Lab Data
03/09/24 06:38
03/09/24 06:38
Microbiology
03/06/24 08:37 Blood/Venous Blood Culture - Preliminary
No Growth in 72 hours- Final report to follow
03/06/24 08:08 Blood/Venous Blood Culture - Preliminary
No Growth in 72 hours- Final report to follow
[2024-03-09] MEDS: SEROQUEL 400 MG PO (22:49)
[2024-03-09] MEDS: NORVASC 10 MG PO (22:49)
[2024-03-09] MEDS: ZOLOFT 100 MG PO (22:49)
[2024-03-09 23:05] VITALS: BP 130/74
[2024-03-10] MEDS: TYLENOL PO ×3 (00:09→23:01)
[2024-03-10 05:05] VITALS: BMI 21.0
[2024-03-10 07:00] VITALS: BP 121/69
[2024-03-10 07:30] LABS: GGTP 172 U/L (12-43)
[2024-03-10] MEDS: CRESTOR 10 MG PO (08:32)
[2024-03-10] MEDS: REQUIP 0.5 MG PO ×2 (08:32→20:53)
[2024-03-10] MEDS: APRESOLINE 50 MG PO ×3 (08:32→22:17)
[2024-03-10] MEDS: LASIX 80 MG PO (08:32)
[2024-03-10] MEDS: NEURONTIN 100 MG PO ×3 (08:33→22:17)
[2024-03-10] MEDS: RENVELA 800 MG PO ×3 (08:33→16:05)
[2024-03-10] MEDS: HEPARIN 5000 UNITS SC ×2 (08:33→20:50)
[2024-03-10] MEDS: COREG 25 MG PO ×2 (08:33→20:50)
[2024-03-10] MEDS: KEFLEX 500 MG PO ×2 (08:33→20:50)
[2024-03-10] MEDS: TYLENOL 650 MG PO ×4 (08:33→20:49)
[2024-03-10] MEDS: MIRAPEX 0.125 MG PO ×3 (08:34→22:17)
[2024-03-10] MEDS: MIRALAX 17 GRAMS PO (08:34)
--- NOTE | 2024-03-10 08:34 | W.PN.GI.CBS2 ---
Today's Communication / Plan
-
CT abd/pelvis with contrast today
Assessment / Plan
-
53-year-old female with past medical history of breast cancer, hypertension, hyperlipidemia, end-stage renal disease on hemodialysis Monday, mitral regurgitation with small PFO, schizophrenia, RLS and solitary kidney who presents to
the emergency room on 03/04/2024 with fatigue, shortness of breath, nausea, and hemoptysis. She was found to have right lower lobe pneumonia with E. coli bacteremia. She was treated with ceftriaxone and transition to oral cephalexin at this time.
Asked to evaluate for right upper quadrant/right sided pain associated with coughing. CT of the abdomen with oral contrast also shows nonspecific low-attenuation lesion abutting the posterior margin of the proximal pancreas measuring 17 x 14 x 12
mm. Patient without any pain with eating. She has nausea associated prior to HD and during HD. She is currently constipated and has not had a bowel movement during her hospitalization. WBC 12.7, hemoglobin 9.7, hematocrit 28.1, platelets 180,
sodium 129, potassium 4.1, chloride 91, CO2 30, BUN 34, creatinine 3.3, glucose 99, total bilirubin 1.0, AST 24, ALT 20, alk phos 227.
Impression:
Nonspecific low-attenuation lesion abutting the posterior margin of the proximal pancreas (17 x 14 x 12 mm)
Right-sided discomfort with coughing in the setting of right lower lobe pneumonia
Constipation
Right lower lobe pneumonia
E. coli bacteremia, second set blood cultures negative
End-stage renal disease on HD Monday
Elevated alk phos
Plan:
-RLL pneumonia and bacteremia treatment per primary team on antibiotics. Fever has resolved and repeat blood cultures are negative
-pancreatic lesion noted probable pancreatic cyst/ IPMN no PD dilatation, will get CT with IV contrast today- discussed with Dr. Pham and HD planned for Monday and based on that may need MRI with MRCP versus EUS and CA 19-9
-Right upper quadrant pain with nausea most likely related to pneumonia
-Mildly elevated alkaline phosphatase level with elevated GGT may be related to medications if persistently elevated will pursue further outpatient workup
-constipation- MiraLAX daily
Subjective
Subjective
Date of Service: March 10, 2024
Her cough is improving her right upper quadrant pain is also improving. She is tolerating diet, no nausea vomiting
Objective
Data Reviewed
Laboratory Data:
Laboratory Results
03/09/24 06:38
03/09/24 06:38
Laboratory Results
PT 16.8 Sec (11.4-14.6) H 03/04/24 10:52
INR 1.39 03/04/24 10:52
APTT 33.0 Sec (23.4-35.0) 03/04/24 10:52
Magnesium 2.1 mg/dl (1.6-2.3) 03/05/24 03:39
Total Bilirubin 1.0 mg/dl (0.2-1.3) 03/09/24 06:38
AST 24 U/L (14-36) 03/09/24 06:38
ALT 20 U/L (0-35) 03/09/24 06:38
Alkaline Phosphatase 227 U/L (38-126) H 03/09/24 06:38
Vital Signs and I&O:
Vital Signs
Temp Pulse Resp BP Pulse Ox
97.8 F 84 18 121/69 93
03/10/24 07:00 03/10/24 07:00 03/10/24 07:00 03/10/24 07:00 03/10/24 07:00
I&O
03/09/24 03/10/24 03/11/24
06:59 06:59 06:59
Intake Total 880 / 880 860 / 860
Balance 880 / 880 860 / 860
Physical Exam
Physical Exam
Cardiology: Normal Sinus Rhythm
Pulmonary: Rales (Decreased breath sounds at the bases no wheezing)
GI: Soft, Non Distended, Non Tender and Normal Bowel Sounds
--- NOTE | 2024-03-10 08:38 | W.PN.HOSP.TC ---
Today's Communication/Plan
-
For CT of the abdomen and pelvis with contrast today
Respiratory status seems to be improving
Continue course of cephalexin
Subsequent blood cultures remain clear
Also need to clarify from PT when ambulatory status is as family worried about her status
Assessment / Plan
Assessment / Plan
53-year-old female on long-term dialysis since August with an AV fistula in her left brachialis who over the weekend developed increasing fatigue and lethargy but especially noted this morning and also had nausea and vomiting increasing shortness
of breath and she was too ill today to leave her scheduled dialysis that she gets Monday she has been diagnosed with end-stage renal disease since August of this past year but had described increasing fatigue over the weekend has
not felt right ever since she started dialysis. She also related a little bit of blood in her sputum this morning. She is not aware of a febrile course but presented with a fever of 103 here. She remains significantly hypoxic and is presently on
a BiPAP mask with continued tachypnea. BP remains relatively stable at 150s over 90 and heart rate is 10 5-1 10 she does relate chronic lower extremity edema with the right leg being out of proportion to the left as far as edema is concerned. She
received an empiric course of vancomycin and cefepime here in the emergency room/rest of his history is rather sketchy even from patient's mother at bedside who did supply a full list of her medications and the patient apparently has schizophrenia
is on Seroquel also restless legs and is treated for hypertensive urgency in the past.
Her most recent echocardiogram was in 2021 at that time an EF of 55 to 60% was noted with a normal RV and function trace mitral regurg and tricuspid regurg was noted no significant change in 2018.
-She is able to states she was born with 1 kidney but could not relate how she entered into end-stage renal disease in the necessity for hemodialysis. She is not diabetic. She does not relate a history of breast cancer. And she does have have
hyperlipidemia with prior surgeries including lumbar surgery
Sepsis present on admission with hypoxic respiratory failure
-Febrile illness/blood cultures initially positive/GNR/E. coli/turned out to be pansensitive/second set of blood cultures remain negative x 24 hours
-Presumed source is pneumonic infiltrate seen on chest x-ray/unable to explain E. coli in the blood/in with her vague abdominal pain
-I will obtain an abdominal CT scan to further image
-Treat as community-acquired pneumonia
-COVID and influenza negative
-Significant hypoxic on presentation could not tolerate BiPAP/remains on high flow oxygen which appears to could be transition to mid flow today
-Got empiric dosage of cefepime vancomycin/discontinue vancomycin with negative MRSA screen
-Continue on Decadron IV and nebulization/not sure at this point is a requirement for continued IV steroids
-proBNP and troponins pending
-May have an element of fluid overload heart failure
-Reviewed most recent 2D echocardiogram from 2021 which was within normal limits
-Follow-up blood culture results have remained no growth
-Pulmonary rampman consultation
E. coli bacteremia
-With no obvious source as urinalysis showed no signs of infection
-And no obvious GI source obtained a CT scan of the abdomen :Nonspecific low-attenuation lesion abutting the posterior margin of the proximal pancreas measuring 17 x 14 x 12 mm. No gross dilatation of pancreatic duct or distal pancreatic atrophy.
-Given this presentation her intermittent abdominal pain will obtain GI consultation to have ordered a CT abdomen pelvis this time with contrast this will have to be followed up by her scheduled hemodialysis on Monday/I spoke to the patient's sister
in relation to the ongoing workup and need to further assess the pancreatic lesion
End-stage renal disease
-Some element of fluid overload/
Ultra filtration removal of 2.5 kg yesterday
-Bilateral venous Dopplers of both lower extremities negative for DVT
-Secondary hyperparathyroidism and hyperphosphatemia
-Continue Cinacalcet/Lokelma/Renvela
= On usual Monday schedule
Troponin elevation felt to be of nonischemic non-ND origin
-Trending down and will be chronically elevated in the setting of ESRD
Essential hypertension
-Continue carvedilol twice daily
-Amlodipine?(Contributing to chronic leg edema)?/But improved after ultrafiltration removal yesterday
-Hydralazine 50 3 times daily
Schizophrenia
-Continue quetiapine
-Sertraline 100 nightly
Restless leg syndrome
-Underlying neuropathy
-Continue gabapentin
-Continue pramipexole
DVT prophylaxis with heparin/avoid compression devices with peripheral edema
-Full CODE STATUS
Anticipated Discharge: Within 24 hours
Subjective/Interval History
-
Date of Service: March 10, 2024
Still admitting to some occasional nausea also spitting up some streaks of bloody sputum but overall that is improved and is now off oxygen still admits to some right-sided flank pain or lower rib cage pain that radiates to the back
Objective Data
-
Vital Signs:
Vital Signs
Temp Pulse Resp BP Pulse Ox
97.8 F 84 18 121/69 93
03/10/24 07:00 03/10/24 07:00 03/10/24 07:00 03/10/24 07:00 03/10/24 07:00
I&O
03/09/24 03/10/24 03/11/24
06:59 06:59 06:59
Intake Total 880 / 880 860 / 860
Balance 880 / 880 860 / 860
Review of Systems
-
History Source: Patient
Constitutional: Reports Weight Loss
Respiratory: Reports No Symptoms
Cardiac: Reports No Symptoms
Abdomen/GI: Reports Abdominal Pain
Genitourinary: Reports No Symptoms
Musculoskeletal: Reports No Symptoms
Skin: Reports No Symptoms
Physical Exam
-
General: No Apparent Distress
HEENT: Normocephalic
Respiratory: Clear to Auscultation
Cardiac: Regular Rhythm
GI: Soft and Tender ( minor tenderness in the right side)
Neuro: Awake, Alert, Oriented and AO x 3
Psych: Calm
Data Reviewed
-
Total Time Spent with Patient (in minutes): 56
CT Scan: Report Reviewed by me
Labs: Labs Reviewed by me (GGT was elevated at 172/alk phos is trending up/)
[2024-03-10] MEDS: OMNIPAQUE 50 ML PO (08:45)
--- NOTE | 2024-03-10 10:37 | W.PN.NEPH.PH ---
Today's Communication / Plan
-
Dialysis tomorrow
CT with IV and p.o. contrast today of abdomen and pelvis re: pancreatic mass
Assessment/Plan
-
Impression:
RLL PNA (Fevers, Hemoptysis)/Hypoxia
GNR bacteremia
End-stage renal disease Monday at [facility]
Hypertension
Secondary hyperparathyroidism
Solitary kidney
Hyperphosphatemia
Anxiety depression
Dyslipidemia
History of extremity involuntary movements
Delusional hyponatremia
Chronic Hyperkalemia
Left upper extremity AV fistula
History of involuntary extremity contractions
Plan:
Next HD on Monday, orders provided
For CT of abdomen and pelvis with oral and IV contrast today re: pancreatic mass
Currently on Keflex Re: Gram-negative justyn bacteremia
Maintain current oral antihypertensives in setting of htn (has been normotensive while here)
Maintain Cinacalcet for secondary hyperparathyroid
Maintain sevelamer with meals Re: Hyperphosphatemia
Maintain Lokelma for hyperkalemia
Fluid restriction of 1500 cc daily for ESRD and hyponatremia
-
-
Date of Service: March 10, 2024
CC / HPI / ROS
-
Chief Complaint:
End-stage renal disease
History of Present Illness:
End-stage renal disease on Monday schedule
Hemodynamically stable
Remains on Keflex in setting of gram negative bacteremia
Review of Systems:
Off oxygen
No chest pain
Some continued cough
Low-grade fever
Left upper extremity AV fistula
Labs
-
Labs:
WBC 12.7 10^3/uL (4.8-10.8) H 03/09/24 06:38
RBC 3.06 10^6/uL (4.20-5.40) L 03/09/24 06:38
Hgb 9.7 g/dL (12.0-16.0) L 03/09/24 06:38
Hct 28.1 % (37.0-47.0) L 03/09/24 06:38
Plt Count 180 10^3/uL (130-400) D 03/09/24 06:38
Sodium 129 mmol/L (135-145) L 03/09/24 06:38
Potassium 4.1 mmol/L (3.5-5.1) 03/09/24 06:38
Chloride 91 mmol/L (98-107) L 03/09/24 06:38
Carbon Dioxide 30 mmol/L (22-30) 03/09/24 06:38
BUN 34 mg/dl (7-17) H 03/09/24 06:38
Creatinine 3.3 mg/dL (0.6-1.0) H 03/09/24 06:38
eGFR 15.88 03/09/24 06:38
Glucose 99 mg/dl (70-99) 03/09/24 06:38
Calcium 9.1 mg/dl (8.4-10.2) 03/09/24 06:38
Duc-R-[id number] Pept > 14931 pg/ml 03/04/24 10:59
Albumin 3.2 g/dl (3.5-5.0) L 03/09/24 06:38
Physical Exam
-
Vital Signs:
Vital Signs
Temp Pulse Resp BP Pulse Ox
97.8 F 84 18 121/69 93
03/10/24 07:00 03/10/24 07:00 03/10/24 07:00 03/10/24 07:00 03/10/24 07:00
Cardiovascular:: Regular rate and rhythm
Respiratory:: Bilateral: Coarse and Bilateral: Rhonchi
Lung Excursion:: Normal
Abdomen:: Nontender
Bowel Sounds:: Normal
Extremity Edema:: +1: Bilateral:
Victoria Catheter: No
[2024-03-10 15:00] VITALS: BP 113/55
--- NOTE | 2024-03-10 16:39 | W.PN.PUL3 ---
Today's Communication / Plan
-
Reconsult prn
Assessment
-
Assessment:
Ms Maryanne Barroso is a 53/W adm 03-04 with 2 d h/o worsening fatigue, lethargy, n/v and dyspnea (could not go for regular HD on DOA due to symptoms). Reported mild hemoptysis on morning of adm. At ER, febrile at 103F, hypoxic, BP 150/90, mild
tachycardia, reportedly no change in R>L SHOBHA edema. Started on BPAP, vancomycin/cefepime, CXR with basilar infiltrate
Impression:
R basilar infiltrate/LLL CAP
Fever
Sul-faqv-sjnakmdymlx hemoptysis, pinkish frothy sputum
E. coli bacteriemia (tatum-sensitive)
Pulmonary vascular congestion
Leukocytosis
Elevated BNP
COVID/flu negative
Abdominal pain
Conditions HAND TAPPER:
CKD, on HD MWF since Aug 2023, LUE AVF
Secondary hyperparathyroidism
Solitary kidney
Mild MR, small PFO on TTE Jul 2023
Anxiety
Depression
Schizophrenia
L spine surgery
RLS
Smoker
Plan:
Was initially admitted to ICU for resp distress, fever and hemoptysis
R basilar infiltrate
Mild hemoptysis of pinkish frothy sputum, witnessed: compounded by HF state (pulm vasc congestion on CXR, last HD 03-01) and platelet dysfunction secondary to CKD
Did not tolerate BPAP in ER, started on HFNC --> weaned down to room air where she has been since 03-07
Remains resp ahn stable on RA at this juncture for about 48+ hrs
Sputum cx negative
Blood cxs E. coli x2 03-04
Negative blood cxs 03-06
MRSA screening negative
Empiric atbs since adm: cefepime/vancomycin (vanco has been discontinued)
Abx now changed from cefepime to keflex since 04-19, complete 7 d course through 03-11 and d/c
Reported wheezing HAND TAPPER, started on IV MP at ER, likely component of acute bronchitis plus HF state --> patient no longer wheezing
Discontinued IV MP 03-05
prn DNs
Troponin peaked at 0.099 on 03/04. No longer need to trend
SHOBHA doppler negative
GI consulted 02-[address] abd s/c 03-08 with nonspecific low-attenuation lesion abutting the posterior margin of the proximal pancreas measuring 17 x 14 x 12 mm. No gross dilatation of pancreatic duct or distal pancreatic atrophy
For CT abd c IV contrast 03-10: non specific 1.8 cm cystic structure at post sup margin of pancreas, rec f/u 1 y
Continue HD as per nephrology
Renal following
Continue a-HTN regimen, including diuretic
Continue sc hep
OOB as tolerated
PT/OT
Follow BCMA in 2 wks p d/c
Reconsult prn
Subjective Data
-
Date of Service:
Date of Service: March 10, 2024
Chief Complaint: Pulmonary Follow Up
Subjective:
No resp events reported
Cough about resolved
On RA
Review of Systems
General: Fever (n), Sweats (n), Chills (n) and Satisfactory Appetite
HEENT: Epistaxis (n)
Cardiopulmonary: Dyspnea (n), Cough, Sputum Production (n), Wheezing and Chest Pain (n)
GI: Abdominal Pain (n), Nausea and Vomiting
Neuro: Weakness
Objective Data
Data Reviewed
Vital Signs / I&O / Oxygen:
Vital Signs
Temp Pulse Resp BP Pulse Ox
97.8 F 73 16 113/55 95
03/10/24 15:00 03/10/24 15:00 03/10/24 15:00 03/10/24 15:00 03/10/24 15:00
Intake and Output
03/09/24 03/10/24 03/11/24
06:59 06:59 06:59
Intake Total 880 / 880 860 / 860
Balance 880 / 880 860 / 860
SaO2 95
Nasal Cannula flow liters per 1
minute
Physical Exam
General: Respiratory Distress (Negative) and Comfortable
HEENT: Normocephalic, Anicteric, Moist Mucous Membranes and Thrush (n)
Cardiovascular: S1-S2, Murmur (n) and Peripheral Edema (+1 lower extremity edema)
Respiratory: Clear, Wheeze (Negative), Crackles (Negative), Rhonchi (Negative), Non-Labored Respirations and Other (Reduced breath sounds at the bases)
GI: Soft, Non Distended, Non Tender and Normal Bowel Sounds
Neurology: Awake, Alert and No Motor Deficits
Skin: Warm and Dry
Labs/Micro/Reports
Lab Data
03/09/24 06:38
03/09/24 06:38
Microbiology
03/06/24 08:37 Blood/Venous Blood Culture - Preliminary
No Growth in 4 days- Final report to follow
03/06/24 08:08 Blood/Venous Blood Culture - Preliminary
No Growth in 4 days- Final report to follow
[2024-03-10] MEDS: SENSIPAR 60 MG PO (17:04)
[2024-03-10] MEDS: ZOFRAN 4 MG IV (21:12)
[2024-03-10] MEDS: SEROQUEL 400 MG PO (22:18)
[2024-03-10] MEDS: NORVASC 10 MG PO (22:18)
[2024-03-10] MEDS: ZOLOFT 100 MG PO (22:18)
[2024-03-10 23:05] VITALS: BP 118/66
[2024-03-11] MEDS: TYLENOL PO ×2 (03:08→14:02)
[2024-03-11 06:00] VITALS: BMI 21.5
[2024-03-11 06:58] VITALS: BP 100/59
--- NOTE | 2024-03-11 08:08 | W.PN.GI.CBS2 ---
Today's Communication / Plan
-
MRI with MRCP in 1 year for pancreatic lesion follow up
Assessment / Plan
-
53-year-old female with past medical history of breast cancer, hypertension, hyperlipidemia, end-stage renal disease on hemodialysis Monday, mitral regurgitation with small PFO, schizophrenia, RLS and solitary kidney who presents to
the emergency room on 03/04/2024 with fatigue, shortness of breath, nausea, and hemoptysis. She was found to have right lower lobe pneumonia with E. coli bacteremia. She was treated with ceftriaxone and transition to oral cephalexin at this time.
Asked to evaluate for right upper quadrant/right sided pain associated with coughing. CT of the abdomen with oral contrast also shows nonspecific low-attenuation lesion abutting the posterior margin of the proximal pancreas measuring 17 x 14 x 12
mm. Patient without any pain with eating. She has nausea associated prior to HD and during HD. She is currently constipated and has not had a bowel movement during her hospitalization. WBC 12.7, hemoglobin 9.7, hematocrit 28.1, platelets 180,
sodium 129, potassium 4.1, chloride 91, CO2 30, BUN 34, creatinine 3.3, glucose 99, total bilirubin 1.0, AST 24, ALT 20, alk phos 227.
Impression:
Nonspecific low-attenuation lesion abutting the posterior margin of the proximal pancreas (17 x 14 x 12 mm)
Right-sided discomfort with coughing in the setting of right lower lobe pneumonia
Constipation
Right lower lobe pneumonia
E. coli bacteremia, second set blood cultures negative
End-stage renal disease on HD Monday
Elevated alk phos
Plan:
-RLL pneumonia and bacteremia treatment per primary team on antibiotics improving. Fever has resolved and repeat blood cultures are negative
-pancreatic lesion- Likely exophytic pancreatic pseudocyst versus IPMN on CT with IV contrast. Recommended repeat imaging in 1 year would likely do MRI with MRCP if okay with renal in 1 year and if there is any changes then EUS currently has no
worrisome features on the CT with contrast.
-Right upper quadrant pain with nausea most likely related to pneumonia- improved
-Mildly elevated alkaline phosphatase level with elevated GGT may be related to medications if persistently elevated will pursue further outpatient workup
-constipation- MiraLAX daily
-She has colonoscopy scheduled with Dr. East in March
-will s/o and will be available as needed
Subjective
Subjective
Date of Service: March 11, 2024
Cough is improved and shortness of breath is also markedly improved, no abdominal pain, tolerating diet, no further nausea or vomiting, she still has right upper quadrant pain but improving
Objective
Data Reviewed
Laboratory Data:
Laboratory Results
PT 16.8 Sec (11.4-14.6) H 03/04/24 10:52
INR 1.39 03/04/24 10:52
APTT 33.0 Sec (23.4-35.0) 03/04/24 10:52
Magnesium 2.1 mg/dl (1.6-2.3) 03/05/24 03:39
Total Bilirubin 1.0 mg/dl (0.2-1.3) 03/09/24 06:38
AST 24 U/L (14-36) 03/09/24 06:38
ALT 20 U/L (0-35) 03/09/24 06:38
Alkaline Phosphatase 227 U/L (38-126) H 03/09/24 06:38
Vital Signs and I&O:
Vital Signs
Temp Pulse Resp BP Pulse Ox
98.1 F 71 14 100/59 93
03/11/24 06:58 03/11/24 06:58 03/11/24 06:58 03/11/24 06:58 03/11/24 06:58
I&O
03/10/24 03/11/24 03/12/24
06:59 06:59 06:59
Intake Total 860 / 860 1020 / 1020
Balance 860 / 860 1020 / 1020
03/10/24 CT abd/pelvis with contrast
IMPRESSION:
Right lower lobe pneumonia with slightly improved aeration. Parapneumonic effusion.
Stable hepatomegaly.
Nonenhancing 1.8 cm cystic structure immediately adjacent to and contiguous with the posterior superior margin of the pancreas. Nonspecific. Possible small exophytic pseudocyst or intraductal papillary mucinous neoplasm. Recommend follow-up in one
year.
Under distention of the descending colon and rectosigmoid colon versus mild nonspecific colitis. No evidence of pneumatosis. Clinical correlation recommended.
No other significant interval change.
Physical Exam
Physical Exam
Cardiology: Normal Sinus Rhythm
Pulmonary: Clear
GI: Soft, Non Distended, Non Tender and Normal Bowel Sounds
[2024-03-11] MEDS: RENVELA 800 MG PO ×2 (08:14→17:21)
[2024-03-11] MEDS: TYLENOL 650 MG PO ×3 (08:15→21:04)
[2024-03-11] MEDS: CRESTOR 10 MG PO (08:15)
[2024-03-11] MEDS: KEFLEX 500 MG PO ×2 (08:15→21:04)
[2024-03-11] MEDS: MIRALAX PO ×2 (08:15→08:31)
[2024-03-11] MEDS: HEPARIN 5000 UNITS SC ×2 (08:15→21:03)
[2024-03-11] MEDS: MIRAPEX 0.125 MG PO ×3 (08:16→22:15)
[2024-03-11] MEDS: NEURONTIN 100 MG PO ×3 (08:16→22:15)
[2024-03-11] MEDS: REQUIP 0.5 MG PO ×2 (08:16→21:04)
[2024-03-11] MEDS: APRESOLINE PO (08:17)
[2024-03-11] MEDS: LASIX PO (08:17)
[2024-03-11] MEDS: COREG PO (08:17)
[2024-03-11] MEDS: LOKELMA 10 GRAM PO (08:20)
[2024-03-11 11:45] VITALS: O2SAT 94
--- NOTE | 2024-03-11 11:56 | W.PN.HOSP.TC ---
Today's Communication/Plan
-
Monitor vital signs and see plan
Continue with cephalexin
GI follow-up outpatient
Dialysis today
PT/OT to see today
labs pending
Assessment / Plan
Assessment / Plan
53-year-old female on long-term dialysis since August with an AV fistula in her left brachialis who over the weekend developed increasing fatigue and lethargy but especially noted this morning and also had nausea and vomiting increasing shortness
of breath and she was too ill today to leave her scheduled dialysis that she gets Monday she has been diagnosed with end-stage renal disease since August of this past year but had described increasing fatigue over the weekend has
not felt right ever since she started dialysis. She also related a little bit of blood in her sputum this morning. She is not aware of a febrile course but presented with a fever of 103 here. She remains significantly hypoxic and is presently on
a BiPAP mask with continued tachypnea. BP remains relatively stable at 150s over 90 and heart rate is 10 5-1 10 she does relate chronic lower extremity edema with the right leg being out of proportion to the left as far as edema is concerned. She
received an empiric course of vancomycin and cefepime here in the emergency room/rest of his history is rather sketchy even from patient's mother at bedside who did supply a full list of her medications and the patient apparently has schizophrenia
is on Seroquel also restless legs and is treated for hypertensive urgency in the past.
Her most recent echocardiogram was in 2021 at that time an EF of 55 to 60% was noted with a normal RV and function trace mitral regurg and tricuspid regurg was noted no significant change in 2018.
-She is able to states she was born with 1 kidney but could not relate how she entered into end-stage renal disease in the necessity for hemodialysis. She is not diabetic. She does not relate a history of breast cancer. And she does have have
hyperlipidemia with prior surgeries including lumbar surgery
Sepsis present on admission with hypoxic respiratory failure
-Febrile illness/blood cultures initially positive/GNR/E. coli/turned out to be pansensitive/second set of blood cultures remain negative now
-Presumed source is pneumonic infiltrate seen on chest x-ray/unable to explain E. coli in the blood/in with her vague abdominal pain
-CT abdomen with nonspecific low-attenuation lesion at the posterior margin of the proximal pancreas. Evaluated by GI and recommended MRI with MRCP in 1 year for pancreatic lesion follow-up
-Treat as community-acquired pneumonia
-COVID and influenza negative
-Significant hypoxic on presentation could not tolerate BiPAP/remains on high flow oxygen which appears to could be transition to mid flow today
-Got empiric dosage of cefepime vancomycin/discontinue vancomycin with negative MRSA screen
Currently no longer wheezing, pulmonary signed off. Could have component of acute bronchitis which is now appears to have resolved.
-May have an element of fluid overload heart failure
-Reviewed most recent 2D echocardiogram from 2021 which was within normal limits
-Follow-up blood culture results have remained no growth
-Pulmonary boathouse keeper consultation
Continue with cephalexin
E. coli bacteremia
-With no obvious source as urinalysis showed no signs of infection
-And no obvious GI source obtained a CT scan of the abdomen :Nonspecific low-attenuation lesion abutting the posterior margin of the proximal pancreas measuring 17 x 14 x 12 mm. No gross dilatation of pancreatic duct or distal pancreatic atrophy.
-Given this presentation her intermittent abdominal pain will obtain GI consultation to have ordered a CT abdomen pelvis this time with contrast this will have to be followed up by her scheduled hemodialysis on Monday/I spoke to the patient's sister
in relation to the ongoing workup and need to further assess the pancreatic lesion
Further by GI recommended patient to get MRI outpatient. Patient recent blood culture without any growth
End-stage renal disease
-Some element of fluid overload/
Ultra filtration removal of 2.5 kg yesterday
-Bilateral venous Dopplers of both lower extremities negative for DVT
-Secondary hyperparathyroidism and hyperphosphatemia
-Continue Cinacalcet/Lokelma/Renvela
= On usual Monday schedule
Troponin elevation felt to be of nonischemic non-[place] origin
-Trending down and will be chronically elevated in the setting of ESRD
Essential hypertension
-Continue carvedilol twice daily
-Amlodipine?(Contributing to chronic leg edema)?/But improved after ultrafiltration removal yesterday
-Hydralazine 50 3 times daily
Schizophrenia
-Continue quetiapine
-Sertraline 100 nightly
Restless leg syndrome
-Underlying neuropathy
-Continue gabapentin
-Continue pramipexole
DVT prophylaxis with heparin/avoid compression devices with peripheral edema
-Full CODE STATUS
General: No Apparent Distress
HEENT: Normocephalic
Respiratory: Clear to Auscultation
Cardiac: Regular Rhythm
GI: Soft and non tender
Neuro: Awake, Alert, Oriented and AO x 3
Psych: Calm
PT/OT to see again
Anticipated Discharge: Within 24 hours
Subjective/Interval History
-
Date of Service: March 11, 2024
Denies pain
Objective Data
-
Labs:
Laboratory Results
03/11/24
07:00
Hgb Pending
Hct Pending
Sodium Pending
Potassium Pending
Chloride Pending
Carbon Dioxide Pending
Vital Signs:
Vital Signs
Temp Pulse Resp BP Pulse Ox
98.1 F 71 14 100/59 93
03/11/24 06:58 03/11/24 06:58 03/11/24 06:58 03/11/24 06:58 03/11/24 06:58
I&O
03/10/24 03/11/24 03/12/24
06:59 06:59 06:59
Intake Total 860 / 860 1020 / 1020
Balance 860 / 860 1020 / 1020
[2024-03-11] MEDS: RENVELA PO (12:01)
[2024-03-11 13:01] LABS: Hematocrit 25.4 % (37.0-47.0); Hemoglobin 8.8 g/dL (12.0-16.0)
[2024-03-11 13:15] LABS: Carbon Dioxide 22 mmol/L (22-30); Chloride 84 mmol/L (98-107); Sodium 122 mmol/L (135-145)
[2024-03-11] MEDS: RETACRIT 10000 UNITS IV (13:18)
[2024-03-11 15:22] VITALS: BP 138/78
--- NOTE | 2024-03-11 15:41 | W.PN.NEPH.HD ---
Assessment
-
Seen on HD. no complaints. VSS, access ok
Progress Note - Hemodialysis
-
Date of Service: March 11, 2024
Duration: 30 minutes and 3 hours
Potassium Bath: 2
Calcium Bath: 2.5
Opti-Dialyzer: 160
Ultrafiltration: Other
Blood Flow: 400
Dialysate Flow: 600
Heparin: 500x2
EPO: [id number] units
--- NOTE | 2024-03-11 16:07 | CM ---
Addendum entered by Ching Dickey 03/11/24 16:12:
NEEDS O2 WALK TEST ON DAY OF DISCHARGE.
Original Note:
Discharge Plan of Care: Therapy recommendation for HH PT. Patient preference is [facility]. Referral will be forwarded. Will continue with outpatient HD with [facility] in [facility], T--S 11AM.
--- NOTE | 2024-03-11 16:28 | PTCARENOTE ---
Sister devin paz called for an update and asked about results of CT. This RN reached out to hospitalist Dr. Garcia and HANNA Fierro for a call to be made to pts sister to go over results.
[2024-03-11] MEDS: SENSIPAR 60 MG PO (17:21)
[2024-03-11] MEDS: APRESOLINE 50 MG PO ×2 (17:22→22:16)
[2024-03-11] MEDS: COREG 25 MG PO (21:03)
[2024-03-11] MEDS: SEROQUEL 400 MG PO (22:15)
[2024-03-11] MEDS: ZOLOFT 100 MG PO (22:15)
[2024-03-11] MEDS: NORVASC 10 MG PO (22:16)
[2024-03-11 23:15] VITALS: BP 102/58
[2024-03-11 23:56] VITALS: BP 102/58
[2024-03-12] MEDS: TYLENOL PO (00:17)
[2024-03-12] MEDS: TYLENOL 650 MG PO ×3 (03:31→11:16)
[2024-03-12 05:39] VITALS: BMI 20.9
[2024-03-12 06:18] LABS: % Basophils 0.5 % (0-2); % Eosinophils 0.7 % (0-6); % Immature Granulocytes 3.7 % (0-0.5); % Lymphocytes 8.1 % (20.5-51.1); % Monocytes 6.8 % (1.7-9.3); % Neutrophils 80.2 % (42.2-75.2); Absolute Basophils 0.1 10^3/uL (0-0.2); Absolute Eosinophils 0.1 10^3/uL (0-0.7); Absolute Immature Granulocytes 0.5 10^3/uL (0-0.05); Absolute Lymphocytes 1.1 10^3/uL (1.2-3.4); Absolute Monocytes 0.9 10^3/uL (0.1-0.6); Absolute Neutrophils 10.5 10^3/uL (1.4-6.5); Hematocrit 24.6 % (37.0-47.0); Hemoglobin 8.3 g/dL (12.0-16.0); Mean Corp Hgb Conc. 33.7 g/dL (33.0-37.0); Mean Corpuscular Hgb 30.3 pg (27.0-31.0); Mean Corpuscular Volume 89.8 fL (81.0-99.0); Mean Platelet Volume 9.8 fL (7.4-10.4); Nucleated Red Blood Cells % 0 %; Platelet Count 328 10^3/uL (130-400); Red Blood Cell Count 2.74 10^6/uL (4.20-5.40); Red Cell Dist. Width 16.8 % (11.5-14.5)
[2024-03-12 06:56] LABS: Blood Urea Nitrogen 26 mg/dl (7-17); Calcium 8.4 mg/dl (8.4-10.2); Carbon Dioxide 27 mmol/L (22-30); Chloride 91 mmol/L (98-107); Estimated Creatinine Clearance 15 ml/min; Glucose 79 mg/dl (70-99); Potassium 4.4 mmol/L (3.5-5.1); Sodium 129 mmol/L (135-145)
[2024-03-12 07:41] VITALS: BP 111/63
[2024-03-12] MEDS: KEFLEX 500 MG PO (08:34)
[2024-03-12] MEDS: MIRAPEX 0.125 MG PO (08:34)
[2024-03-12] MEDS: COREG 25 MG PO (08:34)
[2024-03-12] MEDS: LASIX 80 MG PO (08:34)
[2024-03-12] MEDS: NEURONTIN 100 MG PO (08:34)
[2024-03-12] MEDS: CRESTOR 10 MG PO (08:34)
[2024-03-12] MEDS: APRESOLINE 50 MG PO (08:34)
[2024-03-12] MEDS: REQUIP 0.5 MG PO (08:35)
[2024-03-12] MEDS: MIRALAX 17 GRAMS PO (08:35)
[2024-03-12] MEDS: RENVELA 800 MG PO ×2 (08:35→11:16)
[2024-03-12] MEDS: HEPARIN SC (08:38)
--- NOTE | 2024-03-12 11:14 | W.PN.HOSP.TC ---
Addendum entered and electronically signed by Cody Garcia MD 03/12/24 12:24:
Time of discharge 38 minutes
Addendum entered and electronically signed by Cody Garcia MD 03/12/24 12:15:
Patient is in need of oxygen on exertion due to pulse oximetry of 91% on room air at rest; 87% on room air with exertion.
Patient was placed on 2L O2 via nasal cannula with saturation of 94%. Oxygen will help to improve hypoxemia.
Patient is mobile within the home. Albuterol therapy has been discussed and is ineffective in treating hypoxemia-related symptoms.
Oxygen will improve the patient's symptoms.
Original Note:
Today's Communication/Plan
-
monitor vitals
see plan
need accurate home o2 assessment; once done can dc likely
sister updated over the phone
HD per nephrology
cw abx
Assessment / Plan
Assessment / Plan
53-year-old female on long-term dialysis since August with an AV fistula in her left brachialis who over the weekend developed increasing fatigue and lethargy but especially noted this morning and also had nausea and vomiting increasing shortness
of breath and she was too ill today to leave her scheduled dialysis that she gets Monday she has been diagnosed with end-stage renal disease since August of this past year but had described increasing fatigue over the weekend has
not felt right ever since she started dialysis. She also related a little bit of blood in her sputum this morning. She is not aware of a febrile course but presented with a fever of 103 here. She remains significantly hypoxic and is presently on
a BiPAP mask with continued tachypnea. BP remains relatively stable at 150s over 90 and heart rate is 10 5-1 10 she does relate chronic lower extremity edema with the right leg being out of proportion to the left as far as edema is concerned. She
received an empiric course of vancomycin and cefepime here in the emergency room/rest of his history is rather sketchy even from patient's mother at bedside who did supply a full list of her medications and the patient apparently has schizophrenia
is on Seroquel also restless legs and is treated for hypertensive urgency in the past.
Her most recent echocardiogram was in 2021 at that time an EF of 55 to 60% was noted with a normal RV and function trace mitral regurg and tricuspid regurg was noted no significant change in 2018.
-She is able to states she was born with 1 kidney but could not relate how she entered into end-stage renal disease in the necessity for hemodialysis. She is not diabetic. She does not relate a history of breast cancer. And she does have have
hyperlipidemia with prior surgeries including lumbar surgery
Sepsis present on admission with hypoxic respiratory failure
-Febrile illness/blood cultures initially positive/GNR/E. coli/turned out to be pansensitive/second set of blood cultures remain negative now
-Presumed source is pneumonic infiltrate seen on chest x-ray/unable to explain E. coli in the blood/in with her vague abdominal pain
-CT abdomen with nonspecific low-attenuation lesion at the posterior margin of the proximal pancreas. Evaluated by GI and recommended MRI with MRCP in 1 year for pancreatic lesion follow-up
-Treat as community-acquired pneumonia
-COVID and influenza negative
-Significant hypoxic on presentation could not tolerate BiPAP/remains on high flow oxygen which appears to could be transition to mid flow today
-Got empiric dosage of cefepime vancomycin/discontinue vancomycin with negative MRSA screen
Currently no longer wheezing, pulmonary signed off. Could have component of acute bronchitis which is now appears to have resolved.
-May have an element of fluid overload heart failure
-Reviewed most recent 2D echocardiogram from 2021 which was within normal limits
-Follow-up blood culture results have remained no growth
-Pulmonary trader consultation
Continue with cephalexin; will treat till 03/20
home o2 eval 03/11
E. coli bacteremia
-With no obvious source as urinalysis showed no signs of infection
-And no obvious GI source obtained a CT scan of the abdomen :Nonspecific low-attenuation lesion abutting the posterior margin of the proximal pancreas measuring 17 x 14 x 12 mm. No gross dilatation of pancreatic duct or distal pancreatic atrophy.
-Given this presentation her intermittent abdominal pain will obtain GI consultation to have ordered a CT abdomen pelvis this time with contrast this will have to be followed up by her scheduled hemodialysis on Monday/I spoke to the patient's sister
in relation to the ongoing workup and need to further assess the pancreatic lesion
Further by GI recommended patient to get MRI outpatient. Patient recent blood culture without any growth
End-stage renal disease
-Some element of fluid overload/
-Bilateral venous Dopplers of both lower extremities negative for DVT
-Secondary hyperparathyroidism and hyperphosphatemia
-Continue Cinacalcet/Lokelma/Renvela
= On usual Monday schedule
Troponin elevation felt to be of nonischemic non-[place] origin
-Trending down and will be chronically elevated in the setting of ESRD
Essential hypertension
-Continue carvedilol twice daily
-Amlodipine?(Contributing to chronic leg edema)?/But improved after ultrafiltration removal yesterday
-Hydralazine 50 3 times daily
Schizophrenia
-Continue quetiapine
-Sertraline 100 nightly
Restless leg syndrome
-Underlying neuropathy
-Continue gabapentin
-Continue pramipexole
DVT prophylaxis with heparin/avoid compression devices with peripheral edema
-Full CODE STATUS
General: No Apparent Distress
HEENT: Normocephalic
Respiratory: Clear to Auscultation
Cardiac: Regular Rhythm
GI: Soft and non tender
Neuro: Awake, Alert, Oriented and AO x 3
Psych: Calm
PT/OT rec home
Anticipated Discharge: Today
Subjective/Interval History
-
Date of Service: March 12, 2024
denies pain
Objective Data
-
Labs:
Laboratory Results
03/12/24
05:30
WBC 13.0 H
Hgb 8.3 L
Hct 24.6 L
Plt Count 328 D
Sodium 129 L
Potassium 4.4
Chloride 91 L
Carbon Dioxide 27
BUN 26 H
Creatinine 3.6 H
Glucose 79
Calcium 8.4
Vital Signs:
Vital Signs
Temp Pulse Resp BP Pulse Ox
98.4 F 74 17 111/63 97
03/12/24 07:41 03/12/24 07:41 03/12/24 07:41 03/12/24 08:34 03/12/24 10:04
I&O
03/11/24 03/12/24 03/13/24
06:59 06:59 06:59
Intake Total 1020 / 1020 780 / 780
Balance 1020 / 1020 780 / 780
--- NOTE | 2024-03-12 11:38 | W.PN.NEPH.PH ---
Today's Communication / Plan
-
dc planning
Assessment/Plan
-
Impression:
RLL PNA (Fevers, Hemoptysis)/Hypoxia
GNR bacteremia
End-stage renal disease Monday at [facility]
Hypertension
Secondary hyperparathyroidism
Solitary kidney
Hyperphosphatemia
Anxiety depression
Dyslipidemia
History of extremity involuntary movements
Delusional hyponatremia
Chronic Hyperkalemia
Left upper extremity AV fistula
History of involuntary extremity contractions
Plan:
Next HD monday
she expects to go home today
-
-
Date of Service: March 12, 2024
CC / HPI / ROS
-
Chief Complaint:
End-stage renal disease
History of Present Illness:
End-stage renal disease on Monday schedule
Hemodynamically stable
completed Keflex in setting of gram negative bacteremia
tolerated HD yesterday
Review of Systems:
Off oxygen
No chest pain
Left upper extremity AV fistula
Labs
-
Labs:
WBC 13.0 10^3/uL (4.8-10.8) H 03/12/24 05:30
RBC 2.74 10^6/uL (4.20-5.40) L 03/12/24 05:30
Hgb 8.3 g/dL (12.0-16.0) L 03/12/24 05:30
Hct 24.6 % (37.0-47.0) L 03/12/24 05:30
Plt Count 328 10^3/uL (130-400) D 03/12/24 05:30
Sodium 129 mmol/L (135-145) L 03/12/24 05:30
Potassium 4.4 mmol/L (3.5-5.1) 03/12/24 05:30
Chloride 91 mmol/L (98-107) L 03/12/24 05:30
Carbon Dioxide 27 mmol/L (22-30) 03/12/24 05:30
BUN 26 mg/dl (7-17) H 03/12/24 05:30
Creatinine 3.6 mg/dL (0.6-1.0) H 03/12/24 05:30
eGFR 14.30 03/12/24 05:30
Glucose 79 mg/dl (70-99) 03/12/24 05:30
Calcium 8.4 mg/dl (8.4-10.2) 03/12/24 05:30
Sgv-M-Pvolrrzxhis Pept > 98858 pg/ml 03/04/24 10:59
Albumin 3.2 g/dl (3.5-5.0) L 03/09/24 06:38
Physical Exam
-
Vital Signs:
Vital Signs
Temp Pulse Resp BP Pulse Ox
98.4 F 74 17 111/63 97
03/12/24 07:41 03/12/24 07:41 03/12/24 07:41 03/12/24 08:34 03/12/24 10:04
Cardiovascular:: Regular rate and rhythm
Respiratory:: Bilateral: Coarse
Lung Excursion:: Normal
Abdomen:: Nontender and Soft
Bowel Sounds:: Normal
Extremity Edema:: None: Bilateral:
--- NOTE | 2024-03-12 12:03 | CM ---
Addendum entered by ZEFERINO wAad 03/12/24 12:09:
Spoke to PT and OT. both recommend home care to educate on energy conservation. RN also. Patient to have [facility].
Original Note:
Met with patient to confirm she and no one else in family will be smoking in home as she needs home oxygen for ambulation. [phone]
spoke to Maggie at [phone]. She will test CM time of delivery of portable.
--- NOTE | 2024-03-12 12:16 | PTCARENOTE ---
room air at rest 92% at rest, pt dropped to 87% with ambulation with PT, pt went back to 90% on toilet, with 2L back up to 94% on ambulation and 97% at rest.
--- NOTE | 2024-03-12 12:24 | W.DCSUMMARY ---
Discharge Summary
Discharge Data
Date of Admission: 03/04/24
Date of Discharge: 03/12/24
-
Pending Results: No
Hospital Course
53-year-old female with past medical history of ESRD on hemodialysis, schizophrenia, restless leg syndrome, essential hypertension came to the hospital with sepsis with hypoxic respiratory failure secondary to pneumonia. Patient blood cultures were
also positive for E. coli. Later on patient blood culture cleared up and were negative prior to discharge. Initially patient was started on IV antibiotics later transitioned to p.o. Keflex prior to discharge. Over time patient oxygenation
improved and patient was able to be weaned off oxygen. However with ambulation she still required oxygen and was put on 2 L with ambulation on discharge. Given her E. coli bacteremia, her urine was negative for urinary tract infection. Upon
abdominal imaging it showed nonspecific low attenuation lesion appearing the posterior margin of the proximal pancreas. She was seen by gastroenterology and was recommended to follow-up with them outpatient. From pulmonary standpoint patient was
instructed to follow-up with them outpatient. It appears that her bacteremia could be secondary to pneumonia. There was also component of acute bronchitis with pneumonia which over time improved. Patient was also evaluated by physical therapy who
recommended home. Once patient symptoms improved, she was then discharged with instructions to follow-up with all her physicians outpatient.
Discharge Plan
-
Patient Disposition: Home with Home Care
Discharge Diagnosis/Procedures: Sepsis secondary to pneumonia
E. coli bacteremia
End-stage renal disease on hemodialysis
Hypoxia
Incidental pancreatic lesion
Condition: Fair
Diet: 2 Gram Sodium
Additional Diets: 50OZ fluid restriction
Activity: As tolerated
Driving Restrictions: As prior to admission
Instructions: *PCP/Other Scuba Dive Training Instructor Heart Failure Instructions
Referrals:
[facility] [Outside] - in one to two days
[employer] [Outside] (home oxygen provider)
Meena Larkin PA-C [Family Provider] - in less than 1 week
Keshia Fierro MD [Active] -
Refugio Gates MD [Active] - (CAP, E coli bacteriemia, see in 2 wks p d/c)
Prescriptions:
New
polyethylene glycol 3350 [HealthyLax] 17 gram Powder In Packet
17 g PO DAILY Qty: 30 0RF
cephalexin 500 mg capsule
500 mg PO BID 10 Days Qty: 20 0RF
Continued
amlodipine [Norvasc] 10 mg Tablet
10 mg PO HS
carvedilol [Coreg] 25 mg Tablet
25 mg PO BID
sertraline 100 mg Tablet
100 mg PO HS
hydralazine 25 mg Tablet
50 mg PO TID
furosemide [Lasix] 80 mg Tablet
80 mg PO DAILY
ropinirole 0.5 mg Tablet
0.5 mg PO BID
pramipexole 0.125 mg Tablet
0.125 mg PO TID
gabapentin 100 mg Capsule
100 mg PO TID
rosuvastatin [Crestor] 10 mg Tablet
10 mg PO DAILY
cinacalcet 30 mg Tablet
60 mg PO QPM
sevelamer carbonate [Renvela] 800 mg Tablet
800 mg PO AC
Lokelma 10 gram Powder In Packet
10 g PO MOWEFR
quetiapine [Seroquel] 400 mg Tablet
400 mg PO HS
Discharge Orders:
Discharge Patient (As Directed); Ordered 03/12/24
Ordered By: Cody Garcia
Discharge Date and Time
Discharge Date/Time: 03/12/24 14:37
Print Language: ROMANIAN
[2024-03-12 13:43] VITALS: BP 102/53
--- NOTE | 2024-03-12 14:45 | VNURNOTE ---
Home Health Liaison met with patient at 1120 to discuss [facility] nurse/therapy, visits, schedule and homebound status. Patient is agreeable and understands that visits at home will be 2-3 x per week to assess and teach medical management.
[facility] brochure provided with contact information. Patient is aware that [facility] will contact her for start of care in 1-2 days after discharge from .
[facility] referral completed and previously accepted in [facility].
== END 2024-03-12 14:37 | disposition home health service (06) | DRG 871 ==
LOC: 2 NORTH 12:21
PROVIDERS: Nurse Practitioner; Specialist; Student in an Organized Health Care Education/Training Program; ADMITTING PHYSICIAN Internal Medicine; ATTENDING PHYSICIAN Internal Medicine; CONSULT PHYSICIAN Internal Medicine Gastroenterology; CONSULT PHYSICIAN Specialist; EMERGENCY PHYSICIAN Emergency Medicine; FAMILY PHYSICIAN Physician Assistant Medical; OTHER PHYSICIAN Internal Medicine Pulmonary Disease
PROC: 5A1D70Z Performance of Urinary Filtration, Intermittent, Less than 6 Hours Per Day (ICD-10-PCS; 2024-03-06)
DX: A41.51 Sepsis due to Escherichia coli [E. coli] (principal); J18.1 Lobar pneumonia, unspecified organism; J96.91 Respiratory failure, unspecified with hypoxia; N18.6 End stage renal disease; I13.2 Hypertensive heart and chronic kidney disease with heart failure and with stage 5 chronic kidney disease, or end stage renal disease; N25.81 Secondary hyperparathyroidism of renal origin; E87.1 Hypo-osmolality and hyponatremia; K86.2 Cyst of pancreas; I5A Non-ischemic myocardial injury (non-traumatic); Z11.52 Encounter for screening for COVID-19; F20.9 Schizophrenia, unspecified; G25.81 Restless legs syndrome; F17.210 Nicotine dependence, cigarettes, uncomplicated; E83.39 Other disorders of phosphorus metabolism; F32.A Depression, unspecified; F41.9 Anxiety disorder, unspecified; E87.5 Hyperkalemia; Z99.2 Dependence on renal dialysis
CPT/HCPCS: 71045; 74150; 74177; 80048; 80051; 80053; 81003; 81015; 82805; 82977; 83605; 83735; 83880; 84443; 84484; 85014; 85018; 85025; 85027; 85610; 85730; 87040; 87070; 87077; 87186; 87205; 87340; 87502; 87641; 87811; 93005; 93970; 94660; 96365; 96375; 97116; 97162; 97165; 97530; 97535; 99291; G0257; Q5106; Q9967

== ENCOUNTER → 2024-04-26 11:26 | Outpatient (REF) | payer OTHER, SELFPAY | LOC: HWRCS 11:26 | PROVIDERS: ATTENDING PHYSICIAN Internal Medicine Cardiovascular Disease; FAMILY PHYSICIAN Physician Assistant Medical; REFERRING PHYSICIAN Nurse Practitioner Family | DX: R06.02 Shortness of breath (principal); Z87.01 Personal history of pneumonia (recurrent) | CPT/HCPCS: 71046; 93306 ==

== ENCOUNTER → 2024-05-02 11:04 | Outpatient (REF) | payer OTHER, SELFPAY | LOC: HWRAD 11:04 | PROVIDERS: ATTENDING PHYSICIAN Nurse Practitioner Family; FAMILY PHYSICIAN Physician Assistant Medical | DX: Z87.01 Personal history of pneumonia (recurrent) (principal); R93.89 Abnormal findings on diagnostic imaging of other specified body structures | CPT/HCPCS: 71250 ==

== ENCOUNTER → 2024-05-07 14:00 | Outpatient (REF) | payer OTHER, SELFPAY | LOC: HWRAD 14:00 | PROVIDERS: ATTENDING PHYSICIAN Physician Assistant Medical | DX: N18.6 End stage renal disease (principal); Z99.2 Dependence on renal dialysis; R18.8 Other ascites | CPT/HCPCS: 74176 ==

== ENCOUNTER 2024-05-27 06:23 | Day surgery (SDC) | payer OTHER, SELFPAY ==
[2024-05-22 06:59] VITALS: BMI 21.2
[2024-05-22 09:30] LABS: Hematocrit 30.1 % (37.0-47.0); Mean Corp Hgb Conc. 29.9 g/dL (33.0-37.0); Mean Corpuscular Hgb 28.6 pg (27.0-31.0); Mean Corpuscular Volume 95.6 fL (81.0-99.0); Mean Platelet Volume 8.9 fL (7.4-10.4); Platelet Count 363 10^3/uL (130-400); Red Blood Cell Count 3.15 10^6/uL (4.20-5.40); Red Cell Dist. Width 18.6 % (11.5-14.5); White Blood Cell Count 8.6 10^3/uL (4.8-10.8)
[2024-05-22 09:36] LABS: INR 1.27; PT 15.9 Sec (11.4-14.6)
[2024-05-22 09:37] LABS: APTT 37.3 Sec (23.4-35.0)
[2024-05-22 10:37] LABS: Blood Urea Nitrogen 45 mg/dl (7-17); Calcium 9.5 mg/dl (8.4-10.2); Carbon Dioxide 28 mmol/L (22-30); Chloride 94 mmol/L (98-107); Estimated Creatinine Clearance 11 ml/min; Glucose 96 mg/dl (70-99); Potassium 5.1 mmol/L (3.5-5.1); Sodium 137 mmol/L (135-145); eGFR 8.37
[2024-05-27] VITALS (9 sets, daily range): BP systolic 19–160; BP diastolic 75–102; BMI 22.2
[2024-05-27 18:33] LABS: Brochalveolar Lavage Color Pink; Brochalveolar Lavage Volume 3 ml
[2024-05-27 18:34] LABS: Brochalveolar Lavage Character Hazy (Clear); Brochalveolar Lavage WBC 4400 cells/ml
[2024-05-29 06:50] LABS: BAL Lymphocytes 80 %; BAL Macrophages 10 %; BAL Neutrophils 10 %
== END 2024-05-27 12:40 | disposition home or self-care (01) ==
LOC: SDS 06:23
PROVIDERS: ATTENDING PHYSICIAN Internal Medicine Critical Care Medicine; FAMILY PHYSICIAN Family Medicine
DX: J44.9 Chronic obstructive pulmonary disease, unspecified (principal); R91.8 Other nonspecific abnormal finding of lung field; R93.89 Abnormal findings on diagnostic imaging of other specified body structures; J96.10 Chronic respiratory failure, unspecified whether with hypoxia or hypercapnia; J90 Pleural effusion, not elsewhere classified; J43.9 Emphysema, unspecified; Z87.891 Personal history of nicotine dependence; Z85.3 Personal history of malignant neoplasm of breast
CPT/HCPCS: 31629; 31653; 31628; 31624; 31623; 31627; 31654; 88172; 88173; 88305; 36415; 71045; 76000; 80048; 85027; 85610; 85730; 87015; 87070; 87077; 87102; 87116; 87186; 87205; 88112; 88177; 88333; 88334; 88341; 88342; 89051; 94640; C1887

== ENCOUNTER → 2024-07-11 14:49 | Outpatient (REF) | payer OTHER, SELFPAY | LOC: HWRAD 14:49 | PROVIDERS: ATTENDING PHYSICIAN Internal Medicine Critical Care Medicine; FAMILY PHYSICIAN Physician Assistant Medical | DX: Z87.01 Personal history of pneumonia (recurrent) (principal) | CPT/HCPCS: 71046 ==

== ENCOUNTER → 2024-07-25 07:35 | Outpatient (REF) | payer OTHER, SELFPAY | LOC: HWRAD 07:35 | PROVIDERS: ATTENDING PHYSICIAN Internal Medicine Critical Care Medicine; FAMILY PHYSICIAN Physician Assistant Medical | DX: E04.1 Nontoxic single thyroid nodule (principal) | CPT/HCPCS: 76536 ==

== ENCOUNTER → 2024-07-30 09:46 | Outpatient (REF) | payer OTHER, SELFPAY | LOC: HWRAD 09:46 | PROVIDERS: ATTENDING PHYSICIAN Internal Medicine Critical Care Medicine; FAMILY PHYSICIAN Physician Assistant Medical; OTHER PHYSICIAN Internal Medicine Hematology & Oncology | DX: J96.11 Chronic respiratory failure with hypoxia (principal); R91.1 Solitary pulmonary nodule | CPT/HCPCS: 71250 ==

== ENCOUNTER → 2024-11-19 12:30 | Outpatient (REF) | payer OTHER, SELFPAY | LOC: HWRAD 12:30 | PROVIDERS: ATTENDING PHYSICIAN Internal Medicine Critical Care Medicine; FAMILY PHYSICIAN Family Medicine | DX: J96.11 Chronic respiratory failure with hypoxia (principal); R91.1 Solitary pulmonary nodule | CPT/HCPCS: 71250 ==

== ENCOUNTER 2025-01-22 06:20 | Day surgery (SDC) | payer OTHER, SELFPAY | END 2025-01-22 11:36 | disposition home or self-care (01) | LOC: GI 06:20 | PROVIDERS: ATTENDING PHYSICIAN Internal Medicine Gastroenterology | DX: Z12.11 Encounter for screening for malignant neoplasm of colon (principal); K57.30 Diverticulosis of large intestine without perforation or abscess without bleeding; K64.8 Other hemorrhoids; D12.5 Benign neoplasm of sigmoid colon; K63.5 Polyp of colon | CPT/HCPCS: 45385; 88305 ==

== ENCOUNTER 2025-02-13 06:16 | Day surgery (SDC) | payer OTHER, SELFPAY ==
[2025-02-13 07:15] VITALS: BP 117/76; BMI 22.8
[2025-02-13 09:28] VITALS: BP 111/70
[2025-02-13 09:30] VITALS: BP 106/74
[2025-02-13 09:45] VITALS: BP 108/65
[2025-02-13 10:00] VITALS: BP 109/70
== END 2025-02-13 10:00 | disposition home or self-care (01) ==
LOC: SDS 06:16
PROVIDERS: ATTENDING PHYSICIAN Internal Medicine Gastroenterology
DX: K86.2 Cyst of pancreas (principal); K31.7 Polyp of stomach and duodenum; K31.89 Other diseases of stomach and duodenum; K86.9 Disease of pancreas, unspecified; N18.6 End stage renal disease
CPT/HCPCS: 43238; 43251; 43239; 88173; 88305; 88342

== ENCOUNTER → 2025-02-27 12:18 | Outpatient (REF) | payer OTHER, SELFPAY | LOC: HWWDC 12:18 | PROVIDERS: ATTENDING PHYSICIAN Physician Assistant Medical; PRIMARYCARE PHYSICIAN Family Medicine | DX: Z12.31 Encounter for screening mammogram for malignant neoplasm of breast (principal) | CPT/HCPCS: 77063; 77067 ==

== ENCOUNTER → 2025-09-18 11:08 | Outpatient (REF) | payer OTHER, SELFPAY | LOC: HWRAD 11:08 | PROVIDERS: ATTENDING PHYSICIAN Internal Medicine Critical Care Medicine; FAMILY PHYSICIAN Family Medicine | DX: R91.1 Solitary pulmonary nodule (principal) | CPT/HCPCS: 71250 ==